=== PATIENT | female | born 1950 | race Caucasian/White ===

== ENCOUNTER → 2020-06-14 10:11 | Outpatient (CLI) | payer MEDICARE, SELFPAY ==
[2020-06-14 12:21] LABS: Alanine Aminotransferase 21 IU/L (<35); Albumin 4.2 g/dL (3.5-5.0); Albumin Globulin Ratio 1.8 (1.0-2.8); Alkaline Phosphatase 50 U/L (38-126); Aspartate Aminotransferase 28 IU/L (14-36); BUN Creatinine Ratio 18.3 (6-22); Bilirubin Total 0.3 mg/dL (0.2-1.3); Blood Urea Nitrogen 15 mg/dL (7-17); Calcium 9.3 mg/dL (8.4-10.2); Carbon Dioxide 29 mmol/L (22-32); Chloride 99 mmol/L (98-107); Cholesterol 244 mg/dL (140-199); Estimated Glomerular Filt Rate > 60.0 mL/min (>60); Globulin 2.4 g/dL (1.7-4.1); Glucose 111 mg/dL (80-110); HDL Cholesterol 95 mg/dL (40-60); HEMOLYSIS < 15 (0-50); LDL Cholesterol Calculated 136 mg/dL (<100); Potassium 4.3 mmol/L (3.4-5.1); Sodium 132 mmol/L (137-145); Total Protein 6.6 g/dL (6.3-8.2); Triglycerides 63 mg/dL (35-150)
[2020-06-14 12:44] LABS: TSH w/ Reflex to FT4 2.01 uIU/mL (0.47-4.68)
== END ==
PROVIDERS: Referring Provider Internal Medicine; Visit Provider Internal Medicine
DX: F41.9 Anxiety disorder, unspecified (principal); Z13.220 Encounter for screening for lipoid disorders
CPT/HCPCS: 36415; 80053; 80061; 84443

== ENCOUNTER 2020-06-20 07:00 | Inpatient (IN) | payer MEDICARE, SELFPAY ==
[2020-06-20] VITALS (36 sets, daily range): BP systolic 102–145; BP diastolic 56–73; PULSE 51–73; RESP 3–28; TEMP 36.1–36.7; O2SAT 94–100; BMI 17.2
--- NOTE | 2020-06-20 07:14 | ED_ITS ---
HPI - Overdose General Chief Complaint: Toxicology Problem Stated Complaint: Altered Mental status Time Seen by Provider: 06/20/20 07:00 Source: patient and EMS Mode of arrival: EMS Limitations: no limitations History of Present Illness HPI Narrative: 80-year-old female nonsmoker with history of mental health issues presents with EMS and a chief complaint of intentional overdose and suicide attempt. Last evening at about 11:30 p.m. she took a significant number of trazodone and lorazepam and attempt to kill herself. She wrote a note and her found her this morning and notified EMS. The patient is sleepy but guarding her airway without difficulty and denies any head, neck or back pain. She has no chest pain or shortness of breath. She has no nausea, vomiting or diarrhea. She had a prescription for 30 trazodone filled on June 14 and there are 9 remaining, raising the question of potentially 15 consumed. Her lorazepam was filled on June 05 and the bottle is empty. She is prescribed 30 pills, instructed to take 1 per night. She potentially took about 15 trazodone (50mg) and about 15 Lorazepam (1mg) MD complaint: intentional overdose Onset (ago): hour(s) Intent: suicide attempt How Overdose Was Discovered: left note Context: Intentional Overdose: relationship problems Treatments Prior to Arrival: none Related Data Previous Rx's Medication Instructions Recorded azithromycin 250 mg tablet See Rx Instructions PO .COMPLEX #6 10/11/17 tab promethazine 6.25 mg-codeine 10 5 ml PO Q6H PRN #118 ml 10/11/17 mg/5 mL syrup Allergies Allergy/AdvReac Type Severity Reaction Status Date / Time Penicillins Allergy Rash Verified 06/20/20 07:17 Review of Systems Constitutional Constitutional: Denies chills, Denies fatigue, Denies fever(s), Denies frequent falls, Denies lethargy and Denies weakness Eyes Eyes: Denies change in vision, Denies eye discharge, Denies irritation and Denies loss of vision ENT Ears, Nose, Mouth, and Throat: Denies change in voice, Denies dizziness, Denies neck pain, Denies sore throat and Denies throat swelling Cardiovascular Cardiovascular: Denies chest pain, Denies irregular heart rhythm, Denies lightheadedness, Denies palpitations, Denies dyspnea, Denies dyspnea on exertion and Denies orthopnea Respiratory Respiratory: Denies cough, Denies dyspnea, Denies dyspnea on exertion and Denies wheezing Gastrointestinal Gastrointestinal: Denies abdominal pain, Denies change in bowel habits, Denies diarrhea, Denies nausea and Denies vomiting Musculoskeletal Musculoskeletal: Denies neck pain and Denies numbness Integumentary/Breasts Skin/Breast: Denies pruritus, Denies erythema, Denies rash and Denies wounds Neurologic Neurologic: Denies behavioral changes, Denies confusion, Denies dizziness, Denies frequent falls, Denies loss of vision, Denies numbness and Denies w eakness Psychiatric Psychiatric: Denies anxiety, Denies behavioral changes, Denies confusion, Reports depression, Denies homicidal ideation and Reports suicidal ideation Endocrine Endocrine: Denies fatigue, Denies flushing and Denies palpitations Hematologic/Lymphatic Hematologic/Lymphatic: Denies easy bruising Allergic/Immunologic Allergic/Immunologic: Denies urticaria, Denies throat swelling and Denies wheezing Patient History Medical History (Updated 06/20/20 @ 17:50 by Yue Dillon MD) Depression Family History (Updated 06/20/20 @ 17:50 by Yue Dillon MD) Other Family history unobtainable Social History Smoking Status: Former smoker Smoking Status: Former smoker Exam Narrative Exam Narrative: GENERAL: [70] year old patient appears stated age. Well- nourished, well-developed patient, in mild distress. GCS 14. Guarding airway HEAD: Atraumatic. Normocephalic. EYES: Pupils equal round and reactive. Extraocular motions intact. No scleral icterus. No injection or drainage. ENT: Nose without bleeding, purulent drainage. Throat without erythema, tonsillar hypertrophy or exudate. Airway patent. NECK: Trachea midline. Non tender CARDIOVASCULAR: Regular rate and rhythm without murmurs, gallops, or rubs. RESPIRATORY: Clear to auscultation. Breath sounds equal bilaterally. No wheezes, rales, or rhonchi. GASTROINTESTINAL: Abdomen soft, non-tender, nondistended. EXTREMITIES: No edema or joint tenderness. BACK: Nontender without deformity or crepitance. No flank tenderness. NEURO: AOx3. SKIN: No rash or erythema of visible areas Initial Vital Signs Initial Vital Signs: Vital Signs Temperature 97.0 F L 06/20/20 07:12 Pulse Rate 70 06/20/20 07:12 Respiratory Rate 12 06/20/20 07:12 Blood Pressure 111/61 06/20/20 07:12 Pulse Oximetry 95 06/20/20 07:12 Course Course Course Narrative: patient continues to be somnalent and arousable, though difficult. She is guarding her airway without trouble. RESOURCING ADVISOR has tried multiple times to interview, however, she is unable to participate. Orders Ordered: ED Orders 06/20/20 15:45 CT head/brain wo con Stat Acetaminophen (Acetaminophen 325 Mg Tablet) 650 mg PO Q6HR PRN PRN Reason: Fever/Mild Pain (1-3) Hydrocodone Bitart/Acetaminophen (Hydrocodone/Acet 5/325 Tablet) 1 tab PO Q4HR PRN PRN Reason: Pain, Moderate (4-6) Sodium Chloride (Normal Saline 0.9%) 1,000 mls @ 150 mls/hr IV CONT TI Last Admin: 06/20/20 13:47 Dose: 150 mls/hr Documented by: Infusion: 06/20/20 13:47 Dose: 150 mls/hr Documented by: Admin: 06/20/20 07:23 Dose: 150 mls/hr Documented by: YANIRA Sodium Chloride (Normal Saline 0.9%) 1,000 mls @ 100 mls/hr IV CONT TI Naloxone HCl (Naloxone 0.4 Mg/Ml Vial) 0.2 mg IV Q2MIN PRN PRN Reason: Opiate Reversal Vital Signs Vital signs: Vital Signs - 8 hr 06/20/20 10:30 06/20/20 11:00 06/20/20 11:30 Pulse Rate 58 L 60 55 L Respiratory Rate 12 22 16 Blood Pressure 110/56 L Pulse Oximetry 97 99 97 06/20/20 12:00 06/20/20 12:30 06/20/20 13:00 Pulse Rate 53 L 54 L 51 L Respiratory Rate 16 13 13 Blood Pressure Pulse Oximetry 98 99 99 06/20/20 13:30 06/20/20 13:50 06/20/20 13:51 Pulse Rate 54 L 57 L 56 L Respiratory Rate 12 16 22 Blood Pressure 110/61 110/61 Pulse Oximetry 98 99 97 06/20/20 14:00 06/20/20 14:30 06/20/20 15:00 Pulse Rate 56 L 57 L 61 Respiratory Rate 22 19 20 Blood Pressure Pulse Oximetry 98 100 99 06/20/20 15:30 06/20/20 16:00 06/20/20 16:12 Pulse Rate 57 L 63 67 Respiratory Rate 14 18 16 Blood Pressure 102/60 Pulse Oximetry 97 98 99 06/20/20 16:30 Pulse Rate 64 Respiratory Rate 14 Blood Pressure 123/60 Pulse Oximetry 97 MDM - Overdose Lab Data Result diagrams: 06/20/20 07:17 06/20/20 07:17 Labs: Lab Results 06/20/20 06/20/20 06/20/20 Range/Units 07:17 07:17 07:35 WBC 5.0 (4.5-11.0) X10^3/uL RBC 3.91 L (4.0-5.2) X10^6/uL Hgb 12.1 (12.0-16.0) g/dL Hct 36.0 (36-46) % MCV 91.9 (80-100) fL MCH 31.0 (26-34) PG MCHC 33.7 (30-36) % RDW 13.9 (11.6-14.8) % Plt Count 239 (150-400) X10^3/uL Neut % (Auto) 77.4 H (50-75) % Lymph % (Auto) 12.0 L (25-40) % [place] % (Auto) 9.2 (3-14) % Eos % (Auto) 1.0 L (2-4) % Baso % (Auto) 0.4 (0-2) % Neut # (Auto) 3800 (4579-0099) /uL Lymph # (Auto) 600 L (3343-4997) /uL [place] # (Auto) 500 (0-900) /uL Eos # (Auto) 100 (0-450) /uL Baso # (Auto) 0 (0-100) /uL Sodium 128 L (137-145) mmol/L Potassium 3.9 (3.4-5.1) mmol/L Chloride 98 (98-107) mmol/L Carbon Dioxide 28 (22-32) mmol/L BUN 17 (7-17) mg/dL Creatinine 0.67 (0.52-1.04) mg/dL Estimated GFR > 60.0 (>60) mL/min BUN/Creatinine Ratio 25.4 H (6-22) Glucose 96 (80-110) mg/dL Lactate 0.6 L (0.7-2.1) mmol/L Calcium 8.7 (8.4-10.2) mg/dL Total Bilirubin 0.3 (0.2-1.3) mg/dL Conjugated Bilirubin 0.0 (0.0-0.3) md/dL Unconjugated Bilirubin 0.4 (0.0-1.1) mg/dL AST 26 (14-36) IU/L ALT 20 (<35) IU/L Alkaline Phosphatase 43 (38-126) U/L Total Protein 5.6 L (6.3-8.2) g/dL Albumin 3.5 (3.5-5.0) g/dL Globulin 2.1 (1.7-4.1) g/dL Albumin/Globulin Ratio 1.7 (1.0-2.8) Salicylates < 1.0 (<20) mg/dL Acetaminophen < 10 L (10-30) ug/mL Ethyl Alcohol < 10 ( - 10) mg/dL SARS-CoV-2 (PCR) (Negative) 06/20/20 Range/Units 07:56 WBC (4.5-11.0) X10^3/uL RBC (4.0-5.2) X10^6/uL Hgb (12.0-16.0) g/dL Hct (36-46) % MCV (80-100) fL MCH (26-34) PG MCHC (30-36) % RDW (11.6-14.8) % Plt Count (150-400) X10^3/uL Neut % (Auto) (50-75) % Lymph % (Auto) (25-40) % [place] % (Auto) (3-14) % Eos % (Auto) (2-4) % Baso % (Auto) (0-2) % Neut # (Auto) (4107-5018) /uL Lymph # (Auto) (1114-7852) /uL [place] # (Auto) (0-900) /uL Eos # (Auto) (0-450) /uL Baso # (Auto) (0-100) /uL Sodium (137-145) mmol/L Potassium (3.4-5.1) mmol/L Chloride (98-107) mmol/L Carbon Dioxide (22-32) mmol/L BUN (7-17) mg/dL Creatinine (0.52-1.04) mg/dL Estimated GFR (>60) mL/min BUN/Creatinine Ratio (6-22) Glucose (80-110) mg/dL Lactate (0.7-2.1) mmol/L Calcium (8.4-10.2) mg/dL Total Bilirubin (0.2-1.3) mg/dL Conjugated Bilirubin (0.0-0.3) md/dL Unconjugated Bilirubin (0.0-1.1) mg/dL AST (14-36) IU/L ALT (<35) IU/L Alkaline Phosphatase (38-126) U/L Total Protein (6.3-8.2) g/dL Albumin (3.5-5.0) g/dL Globulin (1.7-4.1) g/dL Albumin/Globulin Ratio (1.0-2.8) Salicylates (<20) mg/dL Acetaminophen (10-30) ug/mL Ethyl Alcohol ( - 10) mg/dL SARS-CoV-2 (PCR) Negative (Negative) Imaging Data CT scan - head: Radiologist's Impression: Zaida Jones 70 F [address] Scan ReportSigned Patient: Zaida Jones#: [id number]: 8Acct:[id number]/Sex: 70 / FDate of Service: 06/20/20Loc: EDAccession Number: [id number] Procedure: CT head/brain wo con Ordering Provider: Antonio Bunch D.O. PROCEDURE: CT HEAD/BRAIN WO CON INDICATIONS: altered, suicidal TECHNIQUE: Noncontrast 4.5 mm thick angled axial sections acquired from the foramen magnum to the vertex, with coronal and sagittal reformats. For radiation dose reduction, the following was used: automated exposure control, adjustment of mA and/or kV according to patient size. COMPARISON: None. FINDINGS: Image quality: Excellent. CSF spaces: Basal cisterns are patent. No extra-axial fluid collections. The ventricles are symmetric in size and shape. Brain: No intracranial bleeds or masses. There is cerebral volume loss for age, with resultant ventricular and sulcal prominence. There are periventricular and deep white matter chronic small vessel ischemic changes. There is intracranial internal carotid artery atherosclerosis. Skull and face: Calvarium and visualized facial bones appear intact, without s uspicious lesions. Sinuses: Visualized sinuses and mastoids are clear. IMPRESSION: 1. CT head without acute intracranial abnormalities or acute calvarial fractures. 2. Age-related senescent changes and sequela of chronic small vessel ischemic disease. 3. No mass or mass effect. Dictated by: Xander Townsend M.D. on 06/20/2020 at 16:41 Approved by: Xander Townsend M.D. on 06/20/2020 at 16:43 Discharge Plan Departure Patient Disposition: Admitted As Inpatient Clinical Impression: Suicide attempt, Polysubstance abuse, Intentional overdose of drug in tablet form, Acute hyponatremia Admit Date/Time: 06/20/20 16:55 Admit Provider: Yue Dillon
[2020-06-20] MEDS: SODIUM CHLORIDE 0.9% 1,000 ML 150 ML IV ×2 (07:23→13:47)
[2020-06-20 07:26] LABS: Add Manual Diff / Slide Review NO; Basophils Absolute Auto 0 /uL (0-100); Basophils Percent Auto 0.4 % (0-2); Eosinophils Absolute Auto 100 /uL (0-450); Hemoglobin 12.1 g/dL (12.0-16.0); Lymphocytes Absolute Auto 600 /uL (1100-4500); Mean Corpuscular HGB Conc 33.7 % (30-36); Mean Corpuscular Volume 91.9 fL (80-100); Monocytes Absolute Auto 500 /uL (0-900); Monocytes Percent Auto 9.2 % (3-14); Neutrophils Absolute Auto 3800 /uL (1500-7000); Neutrophils Percent Auto 77.4 % (50-75); Platelet Count 239 X10^3/uL (150-400); Red Blood Cell Count 3.91 X10^6/uL (4.0-5.2); Red Cell Distribution Width 13.9 % (11.6-14.8)
[2020-06-20 07:29] LABS: Acetaminophen < 10 ug/mL (10-30); Alanine Aminotransferase 20 IU/L (<35); Albumin 3.5 g/dL (3.5-5.0); Albumin Globulin Ratio 1.7 (1.0-2.8); Alkaline Phosphatase 43 U/L (38-126); Aspartate Aminotransferase 26 IU/L (14-36); BUN Creatinine Ratio 25.4 (6-22); Bilirubin Total 0.3 mg/dL (0.2-1.3); Bilirubin Unconjugated 0.4 mg/dL (0.0-1.1); Blood Urea Nitrogen 17 mg/dL (7-17); Calcium 8.7 mg/dL (8.4-10.2); Carbon Dioxide 28 mmol/L (22-32); Chloride 98 mmol/L (98-107); Estimated Glomerular Filt Rate > 60.0 mL/min (>60); Ethanol (ETOH) < 10 mg/dL; Globulin 2.1 g/dL (1.7-4.1); Glucose 96 mg/dL (80-110); HEMOLYSIS < 15 (0-50); Potassium 3.9 mmol/L (3.4-5.1); Salicylate < 1.0 mg/dL (<20); Sodium 128 mmol/L (137-145); Total Protein 5.6 g/dL (6.3-8.2)
--- NOTE | 2020-06-20 07:31 | PC.NURSE ---
Patient brought in by EMS after her spouse found a letter. Patient overdosed on Trazodone and Ativan. Patient reports she took them around 2330 last night. Patient arrives lethargic but arrousable. Drifts back to sleep in conversation. Patient states her provider recently started prescribing it for sleep and anxiety. I just wanted my to know I couldn't do this anymore
[2020-06-20 07:56] LABS: Lactate (Lactic Acid) 0.6 mmol/L (0.7-2.1)
[2020-06-20 08:22] LABS: COVID19 -Nasal RAPID Negative (Negative)
--- NOTE | 2020-06-20 08:40 | PC.NURSE ---
Patient took approx 15 tabs of Trazodone 30mg each and 16 tabs of Ativan 1mg each at 2330 last night. Left a note for
--- NOTE | 2020-06-20 08:57 | PC.NURSE ---
Poison Control notified of Overdose. Suggested if any abnormalities on EKG with OTC to add on magnesium level. Monitor and wait for patient to be more alert for SECURITIES ATTORNEY evaluation
--- NOTE | 2020-06-20 09:38 | PC.NURSE ---
sleeping. Resp unlabored
--- NOTE | 2020-06-20 09:39 | PC.NURSE ---
sleeping. Repositioned independently
--- NOTE | 2020-06-20 09:43 | PC.NURSE ---
sleeping. IVF continue to infuse. Patient repositioning independent. Resp even and unlabored
--- NOTE | 2020-06-20 10:27 | PC.NURSE ---
Breakfast ordered per patient
--- NOTE | 2020-06-20 14:29 | PC.NURSE ---
Pt done eating lunch. [employer] GLOVE [employer]MER in room talking with pt now.
--- NOTE | 2020-06-20 15:45 | DI.CT.S_ITS ---
PROCEDURE: CT HEAD/BRAIN WO CON INDICATIONS: altered, suicidal TECHNIQUE: Noncontrast 4.5 mm thick angled axial sections acquired from the foramen magnum to the vertex, with coronal and sagittal reformats. For radiation dose reduction, the following was used: automated exposure control, adjustment of mA and/or kV according to patient size. COMPARISON: None. FINDINGS: Image quality: Excellent. CSF spaces: Basal cisterns are patent. No extra-axial fluid collections. The ventricles are symmetric in size and shape. Brain: No intracranial bleeds or masses. There is cerebral volume loss for age, with resultant ventricular and sulcal prominence. There are periventricular and deep white matter chronic small vessel ischemic changes. There is intracranial internal carotid artery atherosclerosis. Skull and face: Calvarium and visualized facial bones appear intact, without suspicious lesions. Sinuses: Visualized sinuses and mastoids are clear. IMPRESSION: 1. CT head without acute intracranial abnormalities or acute calvarial fractures. 2. Age-related senescent changes and sequela of chronic small vessel ischemic disease. 3. No mass or mass effect. Dictated by: Xander Townsend M.D. on 06/20/2020 at 16:41 Approved by: Xander Townsend M.D. on 06/20/2020 at 16:43
--- NOTE | 2020-06-20 16:09 | CM.SWNOTE ---
ORDER ENTRY ADMINISTRATOR note ORDER ENTRY ADMINISTRATOR consult requested for patient. Patient is a 70 y/o female who presents to this ED following an attempted overdose on Lorazepam and Trazadone. Patient did write suicide note and a copy of this note has been provided to this ED by patient?s . Patient was brought to ED via EMS after patient?s called 911. ORDER ENTRY ADMINISTRATOR is informed by RN that patient is awake and ORDER ENTRY ADMINISTRATOR enters room. ORDER ENTRY ADMINISTRATOR attempts assessment with patient. Patient does attempt to engage in assessment, however, is still very somnolent. Patient?s speech is soft, and both movement and speech are slow. Patient is able to explain that she started experiencing ?phobia? of dentists in April, and had been experiencing anxiety since then. Patient is unable to remain focused on conversation at hand, begins to fall asleep, and ORDER ENTRY ADMINISTRATOR offers to delay assessment. Patient agrees. ORDER ENTRY ADMINISTRATOR exits room and updates ERLINDA Oliver. Pl: Per Dr. Bunch, plan will be to admit patient to hospital at this time. HU Delgado
--- NOTE | 2020-06-20 17:31 | PC.NURSE ---
Addendum entered by Yue Stein R.N. 06/20/20 17:44: Pt incontinent and pad underneath removed. Pt reports needing to urinate again and placed on bedpan. Original Note: Pt notified dinner is available. Pt states yes when asked if she is hungry. MD Dillon now in room.
--- NOTE | 2020-06-20 17:44 | P.HP_ITS ---
History of Present Illness History of Present Illness Date Patient Seen: 06/20/20 Chief complaint: Altered Mental status Narrative: The patient is a 70-year-old female with a history of depression. Patient took an overdose last evening. Around 03 11 she took 50 mg tablets of trazodone. Patient left a note. She was found by her somnolent and minimally responsive. Patient was brought into the emergency department for evaluation. She was found to have a sodium of 128. Head CT was obtained. Poison control was contacted and recommended observation and monitoring her QT interval. The patient has been in the emergency department for 10 hours. She continues to be very somnolent and unarousable. The patient initially was able to answer questions. She stated she was at [facility] because she took an overdose last evening. She quickly fell back to sleep. She gets a she had a mild headache, no shortness of breath, and no dysuria. Otherwise the patient was sleepy again and minimally arousable. She is admitted to the hospital for detoxification following an overdose of multiple substances. Patient History Medical History (Updated 06/20/20 @ 17:50 by Yue Dillon MD) Depression Family & Social History Family History (Updated 06/20/20 @ 17:50 by Yue Dillon MD) Other Family history unobtainable Safety & Behavioral: Feels Safe in Current Yes Environment Been Physically Hurt or No Threatened By a Person Tobacco & Substance use: Smoking Status Former smoker Meds Home Medications and Allergies Home Medications Medication Instructions Recorded Confirmed Type azithromycin 250 mg tablet See Rx Instructions PO .COMPLEX #6 10/11/17 Rx tab promethazine 6.25 mg-codeine 10 5 ml PO Q6H PRN #118 ml 10/11/17 Rx mg/5 mL syrup Allergies Allergy/AdvReac Type Severity Reaction Status Date / Time Penicillins Allergy Rash Verified 06/20/20 07:17 Review of Systems Review of Systems ROS: Yes unobtainable due to mental status Exam Vital Signs (past 8 hours): - 06/20/20 10:00 06/20/20 10:30 06/20/20 11:00 Pulse Rate 52 L 58 L 60 Respiratory Rate 13 12 22 Blood Pressure Pulse Oximetry 98 97 99 06/20/20 11:30 06/20/20 12:00 06/20/20 12:30 Pulse Rate 55 L 53 L 54 L Respiratory Rate 16 16 13 Blood Pressure 110/56 L Pulse Oximetry 97 98 99 06/20/20 13:00 06/20/20 13:30 06/20/20 13:50 Pulse Rate 51 L 54 L 57 L Respiratory Rate 13 12 16 Blood Pressure 110/61 Pulse Oximetry 99 98 99 06/20/20 13:51 06/20/20 14:00 06/20/20 14:30 Pulse Rate 56 L 56 L 57 L Respiratory Rate 22 22 19 Blood Pressure 110/61 Pulse Oximetry 97 98 100 06/20/20 15:00 06/20/20 15:30 06/20/20 16:00 Pulse Rate 61 57 L 63 Respiratory Rate 20 14 18 Blood Pressure Pulse Oximetry 99 97 98 06/20/20 16:12 06/20/20 16:30 06/20/20 17:00 Pulse Rate 67 64 61 Respiratory Rate 16 14 14 Blood Pressure 102/60 123/60 108/58 L Pulse Oximetry 99 97 96 Oxygen Delivery Method Room Air Narrative Exam Narrative: Lethargic female lying in bed, minimally arousable, she intermittently will arouse answer questions in the quickly fall back to sleep HEENT: Normocephalic atraumatic, oropharynx reveals dry mucous membranes, neck is supple without adenopathy Lungs: Clear to auscultation Cardiac exam: Regular rate rhythm normal S1-S2 with a 2/6 systolic ejection murmur Abdomen: Soft and nontender Extremities: No edema Neuro exam: The patient is lethargic, she does move all extremities she is minimally responsive, occasions she will awake and answer questions but quickly fall back to sleep. She is unable to participate with full neuro exam Objective Labs Result Diagrams: 06/20/20 07:17 06/20/20 07:17 Labs: Laboratory Results - last 24 hr 06/20/20 06/20/20 06/20/20 07:17 07:17 07:35 WBC 5.0 RBC 3.91 L Hgb 12.1 Hct 36.0 MCV 91.9 MCH 31.0 MCHC 33.7 RDW 13.9 Plt Count 239 Neut % (Auto) 77.4 H Lymph % (Auto) 12.0 L [place] % (Auto) 9.2 Eos % (Auto) 1.0 L Baso % (Auto) 0.4 Neut # (Auto) 3800 Lymph # (Auto) 600 L [place] # (Auto) 500 Eos # (Auto) 100 Baso # (Auto) 0 Sodium 128 L Potassium 3.9 Chloride 98 Carbon Dioxide 28 BUN 17 Creatinine 0.67 Estimated GFR > 60.0 BUN/Creatinine Ratio 25.4 H Glucose 96 Lactate 0.6 L Calcium 8.7 Total Bilirubin 0.3 Conjugated Bilirubin 0.0 Unconjugated Bilirubin 0.4 AST 26 ALT 20 Alkaline Phosphatase 43 Total Protein 5.6 L Albumin 3.5 Globulin 2.1 Albumin/Globulin Ratio 1.7 Salicylates < 1.0 Acetaminophen < 10 L Ethyl Alcohol < 10 SARS-CoV-2 (PCR) 06/20/20 07:56 WBC RBC Hgb Hct MCV MCH MCHC RDW Plt Count Neut % (Auto) Lymph % (Auto) [place] % (Auto) Eos % (Auto) Baso % (Auto) Neut # (Auto) Lymph # (Auto) [place] # (Auto) Eos # (Auto) Baso # (Auto) Sodium Potassium Chloride Carbon Dioxide BUN Creatinine Estimated GFR BUN/Creatinine Ratio Glucose Lactate Calcium Total Bilirubin Conjugated Bilirubin Unconjugated Bilirubin AST ALT Alkaline Phosphatase Total Protein Albumin Globulin Albumin/Globulin Ratio Salicylates Acetaminophen Ethyl Alcohol SARS-CoV-2 (PCR) Negative Assessment & Plan Assessment & Plan narrative: 70-year-old female admitted to the hospital following an polysubstance overdose, for suicide attempt -patient remains markedly lethargic although arousable intermittently -per poison Control 1 substances wear off the patient should be more arousable -both trazodone and Ativan have been held -QT interval corrects are normal -patient will be admitted to telemetry -will continue to monitor her closely Hyponatremia -etiology unclear -will continue IV hydration Depression/suicide ideation -once the patient is cleared medically she will require psychiatric evaluation to determine whether inpatient or outpatient psych evaluation is indicated Patient is a full code will note that her record accordingly Her is her surrogate decision maker
[2020-06-20 18:19] LABS: Appearance Urine UA CLEAR; Bilirubin Urine UA NEGATIVE (NEGATIVE); Color Urine UA YELLOW; Glucose Urine UA NEGATIVE (Negative); Ketones Urine UA NEGATIVE (NEGATIVE); Leukocyte Esterase Urine UA NEGATIVE (NEGATIVE); Nitrite Urine UA NEGATIVE (Negative); Occult Blood Urine UA NEGATIVE (Negative); Protein Urine UA NEGATIVE (Negative); Urobilinogen Urine UA 0.2 E.U./dL (0.2)
[2020-06-20 18:23] LABS: UR Morphine/Opiate cutoff 300 Negative (Negative); Ur Creatinine Normal (Normal); Ur Specific Gravity Normal (Normal); Urine Amphetamines Negative (Negative); Urine Barbiturates Negative (Negative); Urine Benzodiazepines Negative (Negative); Urine Cocaine Negative (Negative); Urine MDMA Negative (Negative); Urine Methadone Negative (Negative); Urine Methamphetamines Negative (Negative); Urine Oxycodone Negative (Negative); Urine Phencyclidine Negative (Negative); Urine Tetrahydrocannabinol Negative (Negative); Urine Tricyclic Antidepressant Negative (Negative); Urine pH Normal (Normal)
--- NOTE | 2020-06-20 19:44 | PC.NURSE ---
admit pt to ac from ED at 1855. VSS. pt is drowsy but opens eyes and is oriented to all questions. able to feed self dinner. This RN asked pt what happened last night that caused her to take so many pills. pt first responds by telling this RN that she used to go to the dentist regularly and than over the years became for fearful of the dentist. Then she states they lost their dental insurance so she stopped going but then went again in 2006 and had a bad experience and didn't go back. This RN asked if pt's having mouth or teeth pain. pt denies. This RN asked pt again what made her take so many pills. This RN asked pt if she was aware that taking that amount of her prescriptions might be detrimental to her breathing and could cause her to . Pt states I didn't really think about it. When asked again what her reason was to take so many pt states that she felt like she's a burden to her and kids and that maybe it was better if she wasn't here. This RN asked why she feels that she is a burden and pt replied that her has a hard time sleeping and maybe it would be easier for him if she wasn't here. Pt than follows that by saying that her and kids love her and have told her she's not a burden. Pt is placed in view room with 1:1 supervision. tele/O2 monitor on. Bed alarm on.
[2020-06-20] MEDS: SODIUM CHLORIDE 0.9% 1,000 ML 100 ML IV (21:01)
[2020-06-21] VITALS (32 sets, daily range): BP systolic 102–120; BP diastolic 55–68; PULSE 53–79; RESP 12–36; TEMP 36.1–37; O2SAT 93–100
[2020-06-21 05:09] LABS: BUN Creatinine Ratio 25.4 (6-22); Blood Urea Nitrogen 16 mg/dL (7-17); Calcium 8.2 mg/dL (8.4-10.2); Carbon Dioxide 27 mmol/L (22-32); Chloride 104 mmol/L (98-107); Estimated Glomerular Filt Rate > 60.0 mL/min (>60); Glucose 113 mg/dL (80-110); HEMOLYSIS 22 (0-50); Sodium 131 mmol/L (137-145)
[2020-06-21 06:33] LABS: Magnesium 1.9 mg/dL (1.6-2.3)
[2020-06-21] MEDS: SODIUM CHLORIDE 0.9% 1,000 ML 100 ML IV (07:00)
--- NOTE | 2020-06-21 07:45 | PC.NURSE ---
Addendum entered by Christiano Vora R.N. 06/21/20 11:07: Pt has remained up to chair this AM. Supportive at bedside. Addendum entered by Christiano Vora R.N. 06/21/20 09:43: Pt up to chair for breakfast. Tolerating general diet and PO fluids. She is calm/cooperative and denies any specific SI/plan at this time. VSS. IVFs dc'd per order. Pt requested I call her to give him a general update and ask him to bring her glasses up for her. Educated to visitor policy. He verbalizes understanding. Original Note: Rec'd pt in bed resting comfortably with eyes closed. Respirations 12 even/unlabored. SPO2 96% on RA. SR/SB on tele with rates 58-65. QTc WNL. Allowing rest and will wake for breakfast. Suicide precautions and 1:1 observation per protocol.
--- NOTE | 2020-06-21 08:24 | PM.PN.1 ---
Subjective Subjective Date Patient Seen: 06/21/20 Interval history: Patient is 70-year-old female with history of depression and anxiety admitted after intentional overdose of lorazepam and trazodone. Patient is awake and talking this morning. She recalls recent events and signifies intention to kill herself with medication overdose. She has not had any changes on telemetry. Patient indicates she was started on low dose of sertraline on May 22 of this year. Subsequently her medication dose was increased twice to current 100 mg daily. Subsequently bupropion 150 mg XR daily was added. She has also been taking trazodone for sleep and lorazepam for sleep/anxiety. Patient endorses depression, hopelessness and insomnia and felt the medications were not working for her. She had appointment with tele health therapist coming up day after her overdose and has not seen a therapist in the past. She has no previous suicidal attempt. Patient states the overdose attempt was kind of a last minute decision and not something she had been contemplating for a while. She states she has good relationship with and also good relationship with her 3 kids. Exam Vital Signs (past 8 hours): - 06/21/20 01:00 06/21/20 05:06 06/21/20 08:00 Temperature 98.6 F 98.1 F Pulse Rate 60 70 63 Respiratory Rate 14 19 16 Blood Pressure 111/55 L 105/59 L 115/61 Pulse Oximetry 96 97 97 Oxygen Delivery Method Room Air Oxygen Flow Rate 0 Narrative Exam Narrative: General: Alert female in no acute distress Lungs: Breathing nonlabored, clear to auscultation Heart: Regular rhythm Extremities: No edema Psychiatric: Affect flat, not tearful, not anxious, no obvious memory deficits, speech is goal-directed without pressured thinking or flight of ideas Objective Labs Result Diagrams: 06/20/20 07:17 06/21/20 04:30 Labs: Laboratory Results - last 24 hr 06/20/20 06/20/20 06/21/20 18:11 18:11 04:30 Sodium 131 L Potassium 4.0 Chloride 104 Carbon Dioxide 27 BUN 16 Creatinine 0.63 Estimated GFR > 60.0 BUN/Creatinine Ratio 25.4 H Glucose 113 H Calcium 8.2 L Magnesium Urine Color Yellow Urine Appearance Clear Urine pH 6.0 Ur Specific [place] 1.020 Urine Protein Negative Urine Glucose (UA) Negative Urine Ketones Negative Urine Occult Blood Negative Urine Nitrate Negative Urine Bilirubin Negative Urine Urobilinogen 0.2 Ur Leukocyte Esterase Negative U Opiates 300ng/mL cut Negative Ur Oxycodone Screen Negative Urine Methadone Screen Negative Ur Barbiturates Screen Negative U Tricyclic Antidepress Negative Ur Phencyclidine Scrn Negative Ur Amphetamines Screen Negative U Methamphetamines Scrn Negative Ur MDMA Scrn (Ecstasy) Negative U Benzodiazepines Scrn Negative Urine Cocaine Screen Negative U Marijuana (THC) Screen Negative 06/21/20 04:30 Sodium Potassium Chloride Carbon Dioxide BUN Creatinine Estimated GFR BUN/Creatinine Ratio Glucose Calcium Magnesium 1.9 Urine Color Urine Appearance Urine pH Ur Specific [place] Urine Protein Urine Glucose (UA) Urine Ketones Urine Occult Blood Urine Nitrate Urine Bilirubin Urine Urobilinogen Ur Leukocyte Esterase U Opiates 300ng/mL cut Ur Oxycodone Screen Urine Methadone Screen Ur Barbiturates Screen U Tricyclic Antidepress Ur Phencyclidine Scrn Ur Amphetamines Screen U Methamphetamines Scrn Ur MDMA Scrn (Ecstasy) U Benzodiazepines Scrn Urine Cocaine Screen U Marijuana (THC) Screen PFSH Medical History (Updated 06/20/20 @ 17:50 by Yue Dillon MD) Depression Family History (Updated 06/20/20 @ 17:50 by Yue Dillon MD) Other Family history unobtainable Social History household members: spouse Smoking Status: Former smoker alcohol intake: never Assessment & Plan Assessment & Plan narrative: 1. 70-year-old female with history of depression admitted to the hospital following an polysubstance overdose, for suicide attempt -patient has woken, is cooperative, and is medically stable -mental health evaluation today to determine outpatient or inpatient psychiatric evaluation 2. Acute hyponatremia, resolved -Hep-Lock IV Quality VTE Deep Vein Thrombosis/Pulmonary Embolism Present on Admission: No
[2020-06-21 14:22] LABS: Osmolality, Serum 273 mOsmol/kg (280-301)
--- NOTE | 2020-06-21 18:15 | PC.NURSE ---
Patient is going to sleep for awhile.
[2020-06-22] VITALS (9 sets, daily range): BP systolic 116–132; BP diastolic 56–79; PULSE 64–87; RESP 16–20; TEMP 36.4–37.2; O2SAT 94–96
[2020-06-22] MEDS: SODIUM CHLORIDE 0.9% FLUSH 10 ML IV ×3 (08:44→22:25)
--- NOTE | 2020-06-22 08:47 | CM.SWNOTE ---
[employer] Assessment and Note [employer] - Executive Chairman Of The Board Assessment Start: 06/22/20 08:30 Freq: Status: Active Protocol: Document 06/22/20 08:31 JOE (Rec: 06/22/20 08:46 JOE [id number]) [employer]/Executive Chairman Of The Board Assessment Start date 06/21/20 Total time Care Management spent on 30-60 minutes patient visit-in minutes Presenting Problem According to ED HPI Narrative 3..21: 80-year-old female nonsmoker with history of mental health issues presents with EMS and a chief complaint of intentional overdose and suicide attempt. Last evening at about 11:30 p.m. she took a significant number of trazodone and lorazepam and attempt to kill herself. She wrote a note and her found her this morning and notified EMS. Precipitating Event(s) Tooth pain 2 months ago, lifelong Phobia of dentistry (dentophobia)... w/recent need of dental work exacerbated underlying depression, anxiety and agoraphobia Patient Strengths Supportive spouse and three supportive adult children, supportive friends, independent and active at baseline Current Behavioral Health Provider(s) PCP Dr Simran Reyes, psychiatry Include Facility, Provider, Ph. # telemedicine appt was scheduled however patient did not connect before arriving to ED Psych. Hx Mental Health and Chemical No prior SA, no h/o counseling Dependency or psychiatric care Family Hx of Behavioral Abuse None reported Psychiatric Hospitalizations (date(s)/ None reported location) Psychosocial information & Support Lives w/spouse in [facility] three adult children, one lives in [place], other in [place] and another out of [place], [place]. Supportive friends School/Work Retired Legal Matters - Outstanding Issues None reported Orientation (Person/Place/Time) A+O Affect (Congruent with Mood?) Blunted affect, does not appear or sound remorseful, appears and sounds apathetic about the outcome of her future Thought Content - Specify/Describe Obsession about avoiding dentist, Dentophobia, admits to constant racing thoughts Speech (Wfqnbn-Hlaz-Gmdnpdj-Rapid-Soft- Normal Loud-Pressured) Motor (Qemmnl-Bjypbfqro-Qeet-Other) Normal Insight (Yfeu-Rkwp-Tpch/Limited) Poor/Limited Judgement (Uwyo-Wfhf-Ndni/Limited) Poor/Limited Impulse Control (Adequate-Impaired) Impaired Memory (Iticwmfys-Wxuqcm-Wkusnt, Intact Impaired-Intact) Concentration (Intact-Impaired) Intact Attention (Intact-Impaired) Intact Behavior (Appropriate-Inappropriate) Appropriate, calm and cooperative Suicidal Ideation (Plan) Yes Homicidal Ideation (Plan) No Intervention and Plan: Patient brought in my EMS after intentional overdose on prescription trazodone and ativan, wrote a good bye note to her spouse before ingesting approx. 5 trazodone (50mg) and about 15 Lorazepam (1mg) Patient requests spouse stay for this [employer]'s visit. Patient has blunted and flat affect, she often requests her to assist w/details and does not exhibit any remorse throughout our visit except to apologize to spouse when he began to tear up. Patient reports a life long struggle w/anxiety and racing thoughts that she has managed by staying active. Patient reports dentophobia throughout her entire adult life, she has gone to the dentist sporadically, but not without extreme anxiety and panic which she reports I just live through Patient dates current exacerbation back approx. two months ago when she bit into a small chix bone, experienced shooting tooth pain, and knew she would need to have dentist work to relieve pain. This fear of returning to the dentist exacerbated chronic underlying depression, anxiety leading to what patient describes as a constant state of panic, nothing helped. Patient became increasingly fearful of anything that was unplanned and unstructured, she feared going to any doctor appt and then became fearful of going out on errands, grocery store etc. Approx. 2 weeks ago, patient was unable to sleep or eat for 4 days and 4 nights d/t racing thoughts and ended up in her PCP's office requesting something to aid in sleep. She was prescribed ativan and trazodone, which she reports helped her sleep but did not take away constant feelings of panic. Patient admits she couldn't live with it, just gave up I guess. Patient laughs inappropriately throughout our conversation, and appears to have a difficult time identifying and labeling feelings of severe and debilitating anxiety, isolation and impulsiveness. Patient denies former thoughts of suicide or attempts, states she did not plan her attempt before the day she took the pills, states I just gave up. This [employer] suggested attempt at inpatient psychiatric care in a geriatric unit and patient and spouse agreed. Patient agrees w/this [employer] that she needs help. Whitley Rolon, [employer]
--- NOTE | 2020-06-22 10:00 | PT.IIE ---
Current Diagnoses Poisoning by selective serotonin and norepinephrine reuptake inhibitors, intentional self-harm, initial encounter (06/20/20) Medical History (Last Updated 06/20/20 @ 17:50 by Yue Dillon MD) Depression Physical Therapy Inpatient Evaluation/Re-Eval M1 PT/OT-IP Prior Functional Status Start: 06/22/20 12:02 Freq: NEEDED Status: Active Protocol: Document 06/22/20 12:02 [facility] (Rec: 06/22/20 12:30 [facility] [id number]) Medical Review Prior Functional Status Medical History Reviewed Yes Communication Independent. Mobility and Gait Pt states did not use any devices for walking. Activities of Daily Living and IADL's Pt states completely independent for all ADl, IADL, and driving needs. Social History Household Members spouse Living Arrangements House Number of Floors (Floors) One Floor Number of Stairs To Enter/Railing? 1 step from either the front or the garage to get into the house. Home Environment Standard Height Toilet,Tub/ Shower Additional Social History Comment Pt has two adult children that live in [place]. M1 PT/OT-IP Prior Functional Status Start: 06/22/20 15:00 Freq: NEEDED Status: Active Protocol: Document 06/22/20 10:00 AB (Rec: 06/22/20 15:22 AB [id number]) Medical Review Prior Functional Status Medical History Reviewed Yes Communication able to make needs known Mobility and Gait pt stated that she is independent with all mobilities and ambulation without AD but stated that she uses her walking sticks when she goes for a walk outdoors Activities of Daily Living and IADL's per OT notes: Pt states completely independent for all ADl, IADL, and driving needs. Social History Household Members spouse Living Arrangements House Number of Floors (Floors) One Floor Number of Stairs To Enter/Railing? 1 steps to enter without rails Home Environment Standard Height Toilet,Tub/ Shower Additional Social History Comment has walking sticks M2 PT-IP Current Condition Start: 06/22/20 15:00 Freq: NEEDED Status: Active Protocol: Document 06/22/20 10:00 AB (Rec: 06/22/20 15:22 AB [id number]) Physical Therapy Current Condition Current Condition Evaluation Date 06/22/20 Treatment Diagnosis intentional overdose; difficulty in walking Onset Date 06/20/20 Precautions Other Precautions falls; suicidal ideation M3 PT-IP Subjective Start: 06/22/20 15:00 Freq: NEEDED Status: Active Protocol: Document 06/22/20 10:00 AB (Rec: 06/22/20 15:22 AB [id number]) Subjective Physical Therapy Visit Type Type Initial Evaluation Visit Start Time 10:00 Visit Stop Time 10:30 Total Visit Minutes 30 Number of MOLDING PROCESS TECHNICIAN Visits 0 Physical Therapy Visit Comments Patient Comments pt is agreeable to do PT Therapy Pain Assessment Pain Present Pain Present Denied Pain M4 PT-IP Mobility and Gait Start: 06/22/20 15:00 Freq: NEEDED Status: Active Protocol: Document 06/22/20 10:00 AB (Rec: 06/22/20 15:22 AB [id number]) PT-Bed Mobility Assessment Supine to Sit Supine to Sit Standby Assistance Sit to Supine Sit to Supine Standby Assistance PT-Transfer Assessment Sit to and From Stand Sit to and from Stand Standby Assistance,Contact Guard Assistance,1 Person Assistance,Use of Upper Extremities Equipment Transfer Assistive Device None,Gait Belt Orthotic/Prosthetic Devices or Brace: No Transfers Transfer Destination Bed,Chair Transfer Technique ambulated without AD Transfer Ability Level of Assist Contact Guard Assistance,Use of Upper Extremities Comments Mobility Comments pt's spouse in room with pt. pt with some confusion and has to refer to spouse for answers regarding home set up. completed sit to stand from chair SBA to CGA. ambulated in room without AD requiring CGA. presents with very unsteady shuffling gait with ( +) LOB to the L posteriorly requiring CGA for rebalancing and cues for steadiness. pt sat on bed and completed supine <>sit SBA. educated pt on safety. Assessed pt's ambulation using FWW and completed with SBA to CGA. continues to be unsteady but better compared to without AD. pt agreed to stay up on chair. positioned on chair. call light and table placed within reach. Left pt with spouse in room. Talked to manager case and the doctor regarding pt's mobility level and assistance needed and at this time, pt will need 24/7 assistance available due to balance issues and safety issues. Gait Assessment Gait Gait Assistance Required: Contact Guard Assist Distance (Feet) 30 Able to Maintain Weight Bearing Status Yes During Gait Assistive Devices Assistive Device None,Gait Belt,Front Wheeled Walker Orthotic/Prosthetic Devices or Brace: No Gait Deviations General Gait Pattern Decreased Stride Length, Decreased Feet Clearance, Narrow Based Gait Factors Limiting Gait Function Factors Limiting Gait Function Poor Balance,Poor Safety Awareness Comments Gait Comments pls refer to mobility section for details PT-Balance Assessment Sitting Balance and Reactions Static Sitting Balance Ability Good Dynamic Sitting Balance Ability Good Standing Balance and Reactions Static Standing Balance Ability Fair Dynamic Standing Balance Ability Fair Device Used without AD M5 PT-IP Objective Assessments Start: 06/22/20 15:00 Freq: NEEDED Status: Active Protocol: Document 06/22/20 10:00 AB (Rec: 06/22/20 15:22 AB [id number]) Orientation Orientation/Cognition Level of Alertness Alert Orientation Name Safety Awareness Decreased Safety Awareness Memory Description Short Term Impaired,Mcfp Impaired Comments with confusion Gross Range of Motion Lower Extremity ROM Assessment Within Functional Limits Strength Lower Extremity Strength Hip 4-/5 Knee 4-/5 Sensation Assessment Sensation Gross Sensation WNL Muscle Tone Muscle Tone WNL Yes M6 PT-IP Treatment Start: 06/22/20 15:00 Freq: NEEDED Status: Active Protocol: Document 06/22/20 10:00 AB (Rec: 06/22/20 15:22 AB [id number]) Physical Therapy Treatment Education Education Provided Safety M7 PT-IP Assessment and Plan Start: 06/22/20 15:00 Freq: NEEDED Status: Active Protocol: Document 06/22/20 10:00 AB (Rec: 06/22/20 15:22 AB [id number]) PT Summary Assessment and Plan Potential Rehabilitation Potential Good Status of Condition at Evaluation Stable Summary Impairments Pain,ROM,Strength,Balance, Coordination,Cognition,Bed Mobility,Transfers,Gait, Activity Tolerance Assessment Summary pt requiring CGA with ambulation without AD but with (+) LOB and requires assist to recovery. pt with slight confusion requires cues for redirections. pt requires 24/ 7 assistance at this time for safety and balance issues and is a fall risk. informed manager case regarding OT eval request for cognitive assessment. revenue cycle manager informed PT that the plan is for pt to go to [facility] but has to to independent with mobility and ambulation. will continue to assess pt's progress and work towards safe d/c plan. Goals Bed Mobility Goal Independent Transfer Goal Independent Gait Goal Independent Gait Distance 250 Other Goals up/down 1 step without AD SBA Days to Meet Goals 5 Frequency of Treatment Frequency Of Treatment Once a Day Treatment Plan Physical Therapy Treatment Plan Bed Mobility Training,Transfer Training,Gait Training, Therapeutic Exercise,Balance Retraining,Discharge Planning, Neuromuscular Re-ed, Coordination Retraining Precautions Other Precautions falls Recommendations To Nursing Amount of Assist Needed 1 Person Assist Discharge Recommendations PT Discharge Recommendations SNF Rehab Transportation Needs at Discharge Wheelchair/Cabulance
--- NOTE | 2020-06-22 11:50 | OT.IP.EVAL ---
Current Diagnoses Poisoning by selective serotonin and norepinephrine reuptake inhibitors, intentional self-harm, initial encounter (06/20/20) Past Medical History (Last Updated 06/20/20 @ 17:50 by Yue Dillon MD) Depression Occupational Therapy Inpatient Evaluation/Re-Eval M1 PT/OT-IP Prior Functional Status Start: 06/22/20 12:02 Freq: NEEDED Status: Active Protocol: Document 06/22/20 12:02 [facility] (Rec: 06/22/20 12:30 [facility] [id number]) Medical Review Prior Functional Status Medical History Reviewed Yes Communication Independent. Mobility and Gait Pt states did not use any devices for walking. Activities of Daily Living and IADL's Pt states completely independent for all ADl, IADL, and driving needs. Social History Household Members spouse Living Arrangements House Number of Floors (Floors) One Floor Number of Stairs To Enter/Railing? 1 step from either the front or the garage to get into the house. Home Environment Standard Height Toilet,Tub/ Shower Additional Social History Comment Pt has two adult children that live in [place]. M2 OT-IP Current Condition Start: 06/22/20 12:02 Freq: Status: Active Protocol: Document 06/22/20 12:02 [facility] (Rec: 06/22/20 12:30 [facility] [id number]) Occupational Therapy Current Condition Current Condition Evaluation Date 06/22/20 Treatment Diagnosis Depression/Suicidal Ideation. Diagnosis Onset Date 06/20/20 M3 OT- IP Subjective and Pain Start: 06/22/20 12:02 Freq: Status: Active Protocol: Document 06/22/20 12:02 [facility] (Rec: 06/22/20 12:30 [facility] [id number]) OT- Subjective Occupational Therapy Visit Type Type Initial Evaluation Visit Start Time 11:05 Visit Stop Time 11:50 Total Visit Minutes 45 Occupational Therapy Visit Comments Patient Comments Pt willing to do OT eval. Patient/Caregiver Goals Pt open to going inpt. psych facility. OT Pain Assessment Pain When Pain Assessed At Rest Pain Present Pain Present Denied Pain M4 OT- IP ADL's Start: 06/22/20 12:02 Freq: Status: Active Protocol: Document 06/22/20 12:02 [facility] (Rec: 06/22/20 12:30 [facility] [id number]) OT [id number] Comments OT Self-Feeding Comments Not at meal time. OT ADL-Grooming General Evaluation Grooming Ability Independent OT ADL-Dressing General Eval Lower Body Dressing Ability Independent Areas Needing Assistance Socks Comments OT Dressing Comments Pt able to independently momo/ doff socks while seated. OT ADL-Toileting General Evaluation Toileting Ability Standby Assistance Comments OT Toileting Comments Pt had loss of balance while turning to the toilet and able to reach out to the grab bar to regain her balance. OT ADL-Bathing Comments OT Bathing Comments Nursing aid assist earlier and able to do while seated per staff. M5 OT- IP IADL's Start: 06/22/20 12:02 Freq: Status: Active Protocol: Document 06/22/20 12:02 [facility] (Rec: 06/22/20 12:30 [facility] [id number]) OT-Instrumental Activities of Daily Living Medication Management Medication Management Comments At this time if going home would be best to have provide supervision and assist as needed. Money Management Money Management Comments At this time if going home would be best to have provide supervision and assist as needed. Meal Preparation Meal Preparation Comments At this time if going home would be best to have provide supervision and assist as needed. Cell Installer Cell Installer Comments At this time if going home would be best to have provide supervision and assist as needed. M6 OT- IP Functional Cognition Start: 06/22/20 12:02 Freq: Status: Active Protocol: Document 06/22/20 12:02 [facility] (Rec: 06/22/20 12:30 [facility] [id number]) Cognitive Factors Limiting Selfcare Function Cognitive Ability Level of Alertness Alert Patient Orientation Name,Month,Year,Day of Week, Place,Situation Attention Span Ability Capable of Focused Attention, Capable of Sustained Attention Ability to Follow Commands Able to Follow One Step Commands Memory Description Short Term Impaired,Working Impaired Safety Awareness Underestimates Need for Assistance Problem Solving Ability Needs Assist to Identify Solutions Executive Function Ability Unable to Remember Details Cognitive Tests SLUMS Pt scored 21/30 , normal score for pt's level of education is 25/30. Pt having difficulty with math calculation, only able to recall 3/5 objects after time passed, not able to draw the clock hands correctly after time given, and able to recall 2/4 questions correctly after paragraph read. Pt's score implies mild cognitive deficits, however her depression can also be affecting her memory and cognition. Cognitive Comments Cognitive Assessment Comments Pt scored 97 seconds on [place] making Part b which implies mild deficits for task switching, visual attention, mental flexibility, speed of processing, and task switching. Pt realizing that it would be best at this time for pt to not drive. pt aware that she is not thinking well , however had good insight to as to why she almost had a loss of balance , I was not looking where I was going . OT- Vision and Hearing OT- Hearing Assessment OT- Hearing Assessment WFL OT- Vision Assessment Visual Acuity Glasses All The Time Visual Attentiveness WFL Occular Pursuits WFL Visual Convergence WFL Visual Carbajal WFL M7 OT- IP Mobility and Balance Start: 06/22/20 12:02 Freq: Status: Active Protocol: Document 06/22/20 12:02 [facility] (Rec: 06/22/20 12:30 [facility] [id number]) OT-Transfer Assessment Sit to and From Stand Sit to and from Stand Standby Assistance Transfers Transfer Ability Standby Assistance,Contact Guard Assistance Technique Transfer Destination Chair,Toilet Transfer Technique Stand Step Pivot Devices Transfer Assistive Devices None Comments Mobility Comments Close SBA while in the room and had loss of balance while turning to the toilet and needing use of grab bar to regain her balance. OT- Gait Assessment Comments Gait Ability Comments Close SBA to CGA with no device. Pt has a wide base of support. Pt states usually wears her shoes at home. OT- Balance Assessment Sitting Balance and Reactions Static Sitting Balance Ability Normal Dynamic Sitting Balance Ability Normal Standing Balance and Reactions Static Standing Balance Ability Good Dynamic Standing Balance Ability Fair M8 OT- IP Objective Assessments Start: 06/22/20 12:02 Freq: Status: Active Protocol: Document 06/22/20 12:02 [facility] (Rec: 06/22/20 12:30 [facility] [id number]) OT Gross Range of Motion Upper Extremity Range of Motion Assessment Within Functional Limits OT Strength Upper Extremity Strength Assessment Within Functional Limits OT- Coordination Assessment Upper Extremity Finger to Nose Test Within Functional Limits OT-Muscle Tone Assessment Muscle Tone WNL Yes M9 OT- IP Assessment and Plan Start: 06/22/20 12:02 Freq: Status: Active Protocol: Document 06/22/20 12:02 [facility] (Rec: 06/22/20 12:30 [facility] [id number]) OT Summary Assessment and Plan Potential Rehabilitation Potential Good Analytic Complexity at Evaluation Low Summary OT Impairments Balance,Functional Mobility, Dressing,Toileting,Bathing, Toilet Transfers,Shower Transfers,Activity Tolerance Progress Towards Goals Progressing Toward Goals Assessment Summary Pt low complexity and here due to overdose due to depression /suicidal ideation. Pt's main barriers are decreased balance , STM, and higher level cognitive needs. Pt looking to possible go to geriatric pysch facility versus home. Goals Self-Feeding Goal Independent Grooming Goal Independent Dressing Goal Independent Toileting Goal Independent Bathing Goal Independent Toilet Transfer Goal Independent Shower Transfer Goal Independent OT-Other Goals Pt to be able to incorporate stress management techniques during daily needs. Days to Meet Goals 5 Frequency of Treatment Frequency Of Treatment Once a Day Treatment Plan OT Treatment Plan ADL Training,Functional Cognition Training,Functional Mobility,Patient/Family Education,Discharge Planning Other Treatment Recommendations and Next stress management Treatment Focus Discharge Recommendations OT Discharge Recommendations Home with Assistance Other Discharge Recommendations Inpatient pyschiatric care Transportation Needs at Discharge Private Vehicle
--- NOTE | 2020-06-22 12:53 | PM.PN.1 ---
Subjective Subjective Date Patient Seen: 06/22/20 Interval history: Patient is 70-year-old female with history of depression and anxiety admitted after intentional overdose of lorazepam and trazodone. Patient is tentatively set up to transfer to [facility] in [place], [place]. Per PT evaluation, she is still a little unstable with her balance requiring standby contact assist although I expect continued improvement to where she can be discharged tomorrow. She was also evaluated by OT who notes some cognitive impairment with MMSE of 21/30 likely due to major depression. Patient remains cooperative with care and consenting for voluntary inpatient psychiatry treatment. Exam Vital Signs (past 8 hours): - 06/22/20 07:43 06/22/20 12:40 Temperature 97.6 F 97.5 F L Pulse Rate 78 76 Respiratory Rate 17 20 Blood Pressure 128/76 130/72 Pulse Oximetry 94 95 Oxygen Delivery Method Room Air Oxygen Flow Rate 0 Narrative Exam Narrative: Patient is alert, responds to questions appropriately though seems to have some forgetfulness, with flat affect. Objective Labs Result Diagrams: 06/20/20 07:17 06/21/20 04:30 Labs: Laboratory Results - last 24 hr 06/20/20 06/21/20 07:17 22:00 Serum Osmolality 273 L Nasal Screen MRSA (PCR) Negative for mrsa [facility] Medical History (Updated 06/20/20 @ 17:50 by Yue Dillon MD) Depression Family History (Updated 06/20/20 @ 17:50 by Yue Dillon MD) Other Family history unobtainable Social History household members: spouse Smoking Status: Former smoker alcohol intake: never Assessment & Plan Assessment & Plan narrative: Patient is 70-year-old female with history of depression admitted to the hospital following intentional polysubstance overdose 1. Major depression, severe -admitted with intentional overdose in suicide attempt written note left for -patient was initially quite somnolent but has been fully awake since yesterday -I expect balance and strength will sufficiently improved to where she can be discharged to inpatient psychiatry tomorrow 2. Acute hyponatremia, resolved Quality VTE Deep Vein Thrombosis/Pulmonary Embolism Present on Admission: No
--- NOTE | 2020-06-22 13:08 | CM.SWNOTE ---
MH Placement Update Placed calls to the following inpatient geriatric psych units : [facility]- had to , did not hear back [facility]- [facility] Spoke w/Leopoldo at [facility] P# [phone] who said their [facility], older adults unit, had plenty of beds so faxed clinical packet to F# [phone]. Then collaborated w/therapy team who explained patient appears to still be below baseline functionally and remains very unsteady on her feet. W/walker she does better, OT completed SLUMS which indicates , Dr Torres suspects this acute cognitive decline likely sec to depression, not dementia. This ONLINE CONTENT EDITOR, Dr Torres, and therapy team agree, if patient can improve functionally over the next 24 hrs, she will be a strong candidate for geriatric psych placement. Contacted Leopoldo at [facility] to update. He suggested ONLINE CONTENT EDITOR call again tomorrow, they will need a completed EKG and patient can admit w/a walker or cane but will need to be able to complete all ADLs indp., bathrooms do have shower chairs. Updated team. Spoke w/patient to update, she remains agreeable to plan. Patient remains a good candidate for inpatient psychiatric care/stabilization. Plan: Attempt geriatric psych unit Wednesday if appropriate vs home w/ spouse and close outpatient f/u (ONLINE CONTENT EDITOR will need to reassess for safety planning) HU Domínguez
[2020-06-23 03:30] VITALS: BP 142/75; PULSE 92; RESP 18; TEMP 36.8; O2SAT 94
[2020-06-23 08:00] VITALS: BP 133/77; PULSE 70; RESP 15; TEMP 36.3; O2SAT 96
--- NOTE | 2020-06-23 10:15 | PT.IPTN ---
Current Diagnoses Poisoning by selective serotonin and norepinephrine reuptake inhibitors, intentional self-harm, initial encounter (06/20/20) Physical Therapy Treatment Note M2 PT-IP Current Condition Start: 06/22/20 15:00 Freq: NEEDED Status: Active Protocol: Document 06/22/20 10:00 AB (Rec: 06/22/20 15:22 AB [id number]) Physical Therapy Current Condition Current Condition Evaluation Date 06/22/20 Treatment Diagnosis intentional overdose; difficulty in walking Onset Date 06/20/20 Precautions Other Precautions falls; suicidal ideation M3 PT-IP Subjective Start: 06/22/20 15:00 Freq: NEEDED Status: Active Protocol: Document 06/23/20 10:14 AW (Rec: 06/23/20 10:24 AW [id number]) Subjective Physical Therapy Visit Type Type Treatment Note Visit Start Time 09:58 Visit Stop Time 10:13 Total Visit Minutes 15 Notes Pt's spouse was present at session Number of HEALTH CARE CONSULTANT Visits 0 Physical Therapy Visit Comments Patient Comments pt is agreeable to do PT Therapy Pain Assessment Pain Present Pain Present Denied Pain M4 PT-IP Mobility and Gait Start: 06/22/20 15:00 Freq: NEEDED Status: Active Protocol: Document 06/23/20 10:14 AW (Rec: 06/23/20 10:24 AW [id number]) PT-Bed Mobility Assessment Supine to Sit Supine to Sit Independent Sit to Supine Sit to Supine Independent PT-Transfer Assessment Sit to and From Stand Sit to and from Stand Independent,Use of Upper Extremities Equipment Transfer Assistive Device None Orthotic/Prosthetic Devices or Brace: No Transfers Transfer Destination Bed,Chair Transfer Technique Stand Step Pivot Transfer Ability Level of Assist Independent Comments Mobility Comments Pt was sitting up in the chair as PT arrived. She was pleasant and cooperative. She stood without assist and ambulated around the unit a total of 400 feet SBA. On return to the room, she demonstrated independent bed mobility and then transferred back to the chair without assist. Pt was left with her spouse in the room. Gait Assessment Gait Gait Assistance Required: Standby Assistance Distance (Feet) 400 Assistive Devices Assistive Device None,Gait Belt,Straight Cane Gait Deviations General Gait Pattern Narrow Based Gait Factors Limiting Gait Function Factors Limiting Gait Function Poor Balance,Poor Safety Awareness Comments Gait Comments Pt completed 4-item Dynamic Gait Index with score of 10/12 . Single points were deducted for slight change in speed during gait with head turns and gait with nods. Stair Climbing Assessment Evaluation Level of Assist On Stairs Standby Assistance Technique/Endurance Number of Steps Climbed 3 Stair Climbing Set # Repetitions (reps) 2 PT-Balance Assessment Sitting Balance and Reactions Static Sitting Balance Ability Good Dynamic Sitting Balance Ability Good Standing Balance and Reactions Static Standing Balance Ability Good Dynamic Standing Balance Ability Good Device Used no AD Functional Assessments Functional Tests Dynamic Gait Index 4-item DGI: 10/12 M5 PT-IP Objective Assessments Start: 06/22/20 15:00 Freq: NEEDED Status: Active Protocol: Document 06/22/20 10:00 AB (Rec: 06/22/20 15:22 AB [id number]) Orientation Orientation/Cognition Level of Alertness Alert Orientation Name Safety Awareness Decreased Safety Awareness Memory Description Short Term Impaired,Bull Driver Impaired Comments with confusion Gross Range of Motion Lower Extremity ROM Assessment Within Functional Limits Strength Lower Extremity Strength Hip 4-/5 Knee 4-/5 Sensation Assessment Sensation Gross Sensation WNL Muscle Tone Muscle Tone WNL Yes M6 PT-IP Treatment Start: 06/22/20 15:00 Freq: NEEDED Status: Active Protocol: Document 06/23/20 10:14 AW (Rec: 06/23/20 10:24 AW [id number]) Physical Therapy Treatment Education Education Provided Safety M7 PT-IP Assessment and Plan Start: 06/22/20 15:00 Freq: NEEDED Status: Active Protocol: Document 06/23/20 10:14 AW (Rec: 06/23/20 10:24 AW [id number]) PT Summary Assessment and Plan Potential Rehabilitation Potential Good Status of Condition at Evaluation Stable Summary Impairments Pain,ROM,Strength,Balance, Coordination,Cognition,Bed Mobility,Transfers,Gait, Activity Tolerance Progress Towards Goals Progressing Toward Goals Assessment Summary Pt required no more than SBA during gait with cane and gait without assistive device. She is alert and able to follow multi-step commands. She scored 10/12 on 4-item Dynamic Gait Index which is on the low normal end for age-matched peers (Diana and Zeynep, 2006). Pt will be safe to discharge home with assist or to another facility once medically cleared. Goals Bed Mobility Goal Independent Transfer Goal Independent Gait Goal Independent Gait Distance 250 Other Goals up/down 1 step without AD SBA Days to Meet Goals 3 Frequency of Treatment Frequency Of Treatment Once a Day Treatment Plan Physical Therapy Treatment Plan Bed Mobility Training,Transfer Training,Gait Training, Therapeutic Exercise,Balance Retraining,Discharge Planning, Neuromuscular Re-ed, Coordination Retraining Precautions Other Precautions falls Recommendations To Nursing Amount of Assist Needed Standby Assistance Discharge Recommendations PT Discharge Recommendations Home with Assistance, Outpatient PT Transportation Needs at Discharge Private Vehicle
--- NOTE | 2020-06-23 10:15 | PM.DS.1 ---
History of Present Illness History of Present Illness Chief complaint: Altered Mental status Narrative: The patient is a 70-year-old female with a history of depression. Patient took an overdose last evening. Around 03 11 she took 50 mg tablets of trazodone. Patient left a note. She was found by her somnolent and minimally responsive. Patient was brought into the emergency department for evaluation. She was found to have a sodium of 128. Head CT was obtained. Poison control was contacted and recommended observation and monitoring her QT interval. The patient has been in the emergency department for 10 hours. She continues to be very somnolent and unarousable. The patient initially was able to answer questions. She stated she was at [facility] because she took an overdose last evening. She quickly fell back to sleep. She gets a she had a mild headache, no shortness of breath, and no dysuria. Otherwise the patient was sleepy again and minimally arousable. She is admitted to the hospital for detoxification following an overdose of multiple substances. Discharge Providers Provider Date of admission: 06/20/20 16:55 Discharge Date: 06/23/20 Consults: 06/20/20 07:36 Consult to CROSSING TENDER - Building Components Designer Stat Comment: CROSSING TENDER Consult: Behavioral Health Assess 06/21/20 16:25 Consult to Physical Therapy Evaluate & Treat Comment: Physician Instructions: Evaluate and Treat 06/22/20 10:24 Consult to Occupational Therapy Evaluate & Treat Comment: Physician Instructions: Evaluate and treat Discharge provider: Uri Torres MD Summary Hospital Course Discharge Diagnosis: 1. Intentional polysubstance overdose 2. Major depression, severe Patient was admitted due to intentional overdose of prescription lorazepam and trazodone with having left note for . She was quite somnolent initially and after about 24 hours started to wake up. She had no abnormal findings on EKG or telemetry. She was noted to have impaired balance with physical therapy which has substantially improved over the past couple of days to where she is now able to ambulate on her own without assistance. She also was noted to have some impairment of memory with occupational therapy evaluation though this is likely result of her major depression. Patient has agreed to have voluntary inpatient psychiatric evaluation and being transferred to [facility] in [facility]. Status at Discharge Cognitive/behavioral status at discharge: oriented Functional status at discharge: independent ambulation Overall status at discharge: patient is back to baseline Time Spent with Patient Time spent: Less than 30 minutes Exam Vital Signs (past 8 hours): - 06/23/20 03:30 06/23/20 08:00 Temperature 98.2 F 97.3 F L Pulse Rate 92 H 70 Respiratory Rate 18 15 Blood Pressure 142/75 H 133/77 Pulse Oximetry 94 96 Oxygen Delivery Method Room Air Oxygen Flow Rate 0 Objective Labs Result Diagrams: 06/20/20 07:17 06/21/20 04:30 PFS Medical History (Updated 06/20/20 @ 17:50 by Yue Dillon MD) Depression Family History (Updated 06/20/20 @ 17:50 by Yue Dillon MD) Other Family history unobtainable Social History household members: spouse Smoking Status: Former smoker alcohol intake: never Discharge Plan Discharge Plan Patient Disposition: Xfer Psychiatric Hosp Other facility: [place], [place] Discharge Health Status Multidrug resistant organism: No MDRO Precautions: [place] Diet/Activity/Treatments Diet: Regular Liquid consistency: Normal/Thin Food texture: Regular Quality VTE Deep Vein Thrombosis/Pulmonary Embolism Present on Admission: No
--- NOTE | 2020-06-23 10:36 | CM.DPC ---
Addendum entered by HU Martinez 06/23/20 15:03: ADD: SW met bedside with pt and spouse and updated on placement difficulties and pt and spouse still confirm they feel that Inpt Voluntary placement still needed at this time and pt discussed some of her fear/uncertainty about going somewhere she has not had experience with but discussed the benefits of temporary/brief inpt tx towards potential for increased skills and enjoyment of life without the panic/fear/anxiety/depression and pt and spouse very agreeable. SW provided them with the information on [facility] program, packing list, visitation, etc. to read through this evening as pt likely will remain overnight with plans for placement tomorrow. BF Addendum entered by HU Martinez 06/23/20 13:50: ADD: Return call from [facility] stating they have concerns that updated PT note states pt is SBA and had gait belt and they need to have PT note that states pt can d/c without any assist needed and cannot review again until tomorrow [facility] 06/24/20 even after discussion that per PT SBA and gait belt is standard protocol for the hospital. [facility] still has lots of openings for tomorrow. SW updated PT regarding above and they are aware for assessment with pt tomorrow. SW called following Voluntary Inpt facilities: [facility]: do not accept older than 65 [place]: [facility]: [facility]: only male bed available [facility]: left msg but faxed referral anyways [facility]: possible bed later today but waiting to hear if being taken by [facility] for an involuntary pt, but willing to review. SW faxed referral to both [facility] and [facility]. SW updated RN, MD, and plastic block boiler reliner. Per MD, frustration as pt is medically stable to d/c and if remains and no placement found tomorrow MD feels good chance for safety planning for the community. Plan: SW to follow closely for review from 2 Inpt facilities above as well sending [facility] updated PT note tomorrow regarding pt's independence with ADL's. HU Martinez Addendum entered by HU Martinez 06/23/20 11:43: ADD: HONG called [facility] at 1140 and confirmed they received the updated clinicals but they are still reviewing with their physician to see if they can accept and will call back with update. BF Original Note: DCP Voluntary MH tx planning: Per MD, pt has remained stable and medically ready for d/c to Inpt MH tx today and writing discharge for today. EKG ordered by RN and RT aware and will prioritize and SW requested PT to prioritize pt today if possible as both EKG and PT note needed for pt to d/c to Inpt MH facility. SW called [facility] and confirmed they still have pt's referral from yesterday and updated them that EKG, PT note, RN notes, and updated clinicals will be faxed today and they anticipate likely accepting pt after updated clinicals reviewed. EKG, prog note and discharge summary, RN notes, Labs, PT note from today all faxed to requested [phone] for [facility] to review for their [facility] facility in [place]. Plan: SW to follow closely for [facility] final review to determine if they can accept pt for voluntary MH tx today and updating pt and spouse bedside. HU Martinez
[2020-06-23 12:44] VITALS: BP 137/79; PULSE 103; RESP 16; TEMP 36.6; O2SAT 99
[2020-06-23 16:10] VITALS: BP 165/88; PULSE 90; RESP 19; TEMP 36.6; O2SAT 97
[2020-06-23 17:37] LABS: COVID19 -Nasal RAPID Negative (Negative)
--- NOTE | 2020-06-23 19:49 | PC.NURSE ---
Lina Nursing Director Graphics with [facility] Psych unit called requesting info and documentation to determine acceptance ability. Documents faxed per request. After reviewing documentation L[facility] called to say pt is not suited for their unit, unable to accept. She states it would be best to place at [facility] if they have beds and willing to accept.
[2020-06-23 20:37] VITALS: BP 148/87; PULSE 87; RESP 18; TEMP 36.8; O2SAT 99
[2020-06-23] MEDS: ACETAMINOPHEN 325 MG TABLET 650 MG PO (22:12)
[2020-06-23 23:00] VITALS: BP 160/93; PULSE 86; RESP 18; TEMP 36.3; O2SAT 98
--- NOTE | 2020-06-24 00:34 | PC.NURSE ---
2328: patient is alert and oriented. Breath sounds CTA with RA sat of 98%. HRR. BP elevated at 160/93 but patient expressing anxiety regarding discharge in a.m. Denies nausea. BT present and abdomen is soft. Denies dysuria, frequency or urgency with urination. Is independent with mobility and steady on feet. Admits to slight headache but had Tylenol earlier and states pain is tolerable at 2/10. Wearing bilateral calf SCD's. Fall risk score is low. 1:1 observation due to admission diagnosis of overdose.
[2020-06-24 03:06] VITALS: BP 154/87; PULSE 89; RESP 18; TEMP 36.6; O2SAT 98
[2020-06-24 07:27] VITALS: BP 159/96; PULSE 89; RESP 16; TEMP 36.1; O2SAT 99
--- NOTE | 2020-06-24 08:48 | PT.IPTN ---
Current Diagnoses Poisoning by selective serotonin and norepinephrine reuptake inhibitors, intentional self-harm, initial encounter (06/20/20) Physical Therapy Treatment Note M2 PT-IP Current Condition Start: 06/22/20 15:00 Freq: NEEDED Status: Active Protocol: Document 06/22/20 10:00 AB (Rec: 06/22/20 15:22 AB [id number]) Physical Therapy Current Condition Current Condition Evaluation Date 06/22/20 Treatment Diagnosis intentional overdose; difficulty in walking Onset Date 06/20/20 Precautions Other Precautions falls; suicidal ideation M3 PT-IP Subjective Start: 06/22/20 15:00 Freq: NEEDED Status: Active Protocol: Document 06/24/20 08:47 AW (Rec: 06/24/20 08:56 AW [id number]) Subjective Physical Therapy Visit Type Type Treatment Note Visit Start Time 08:35 Visit Stop Time 08:47 Total Visit Minutes 12 Number of CREW CHIEF Visits 0 Physical Therapy Visit Comments Patient Comments I haven't slept much the last few days. Therapy Pain Assessment Pain Present Pain Present Denied Pain M4 PT-IP Mobility and Gait Start: 06/22/20 15:00 Freq: NEEDED Status: Active Protocol: Document 06/24/20 08:47 AW (Rec: 06/24/20 08:56 AW [id number]) PT-Bed Mobility Assessment Supine to Sit Supine to Sit Independent Sit to Supine Sit to Supine Independent PT-Transfer Assessment Sit to and From Stand Sit to and from Stand Independent,Use of Upper Extremities Equipment Transfer Assistive Device None Orthotic/Prosthetic Devices or Brace: No Transfers Transfer Destination Bed Transfer Technique Stand Step Pivot Transfer Ability Level of Assist Independent Comments Mobility Comments Pt was lying in bed as PT arrived. She completed all bed mobility, transfers, and gait independently. She was able to bend over to pick items up from the floor independently. Gait Assessment Gait Gait Assistance Required: Independent Distance (Feet) 500 Assistive Devices Assistive Device None,Gait Belt Gait Deviations General Gait Pattern Flexed Trunk Factors Limiting Gait Function Factors Limiting Gait Function Decreased Activity Tolerance Comments Gait Comments Gait belt donned as per hospital protocol. Pt demonstrated good static and dynamic balance and was able to walk around the unit, around workstations, up and down stairs without assist. She required no assistive device. Stair Climbing Assessment Evaluation Level of Assist On Stairs Independent Technique/Endurance Number of Steps Climbed 3 Stair Climbing Set # Repetitions (reps) 2 PT-Balance Assessment Sitting Balance and Reactions Static Sitting Balance Ability Normal Dynamic Sitting Balance Ability Normal Standing Balance and Reactions Static Standing Balance Ability Good Dynamic Standing Balance Ability Good Device Used no AD M5 PT-IP Objective Assessments Start: 06/22/20 15:00 Freq: NEEDED Status: Active Protocol: Document 06/22/20 10:00 AB (Rec: 06/22/20 15:22 AB [id number]) Orientation Orientation/Cognition Level of Alertness Alert Orientation Name Safety Awareness Decreased Safety Awareness Memory Description Short Term Impaired,Skilled Nursing Impaired Comments with confusion Gross Range of Motion Lower Extremity ROM Assessment Within Functional Limits Strength Lower Extremity Strength Hip 4-/5 Knee 4-/5 Sensation Assessment Sensation Gross Sensation WNL Muscle Tone Muscle Tone WNL Yes M6 PT-IP Treatment Start: 06/22/20 15:00 Freq: NEEDED Status: Active Protocol: Document 06/24/20 08:47 AW (Rec: 06/24/20 08:56 AW [id number]) Physical Therapy Treatment Education Education Provided Safety M7 PT-IP Assessment and Plan Start: 06/22/20 15:00 Freq: NEEDED Status: Active Protocol: Document 06/24/20 08:47 AW (Rec: 06/24/20 08:56 AW [id number]) PT Summary Assessment and Plan Potential Rehabilitation Potential Good Status of Condition at Evaluation Stable Summary Impairments Pain,ROM,Strength,Balance, Coordination,Cognition,Bed Mobility,Transfers,Gait, Activity Tolerance Progress Towards Goals Safe For Discharge,Goals Met Assessment Summary Pt was alert and able to follow multi-step commands. She presents with increased anxiety but no affect on mobility independence. Pt is safe to discharge when medically stable. No further acute PT needs are identified. PT will discharge orders at this time. Frequency of Treatment Frequency Of Treatment Discharge Recommendations To Nursing Amount of Assist Needed Independent,Standby Assistance Discharge Recommendations PT Discharge Recommendations Home with Assistance, Outpatient PT Transportation Needs at Discharge Private Vehicle
--- NOTE | 2020-06-24 09:06 | CM.DANOTE ---
Addendum entered by Nayeli Hess 06/24/20 10:57: In addition to the below PROMOTIONAL DEMONSTRATOR placed call to [facility] and they cannot accept due to current acuity at facility. Also left vm with Randal Childress. KJS Original Note: DCP/continued: Reviewed chart. Per notes, patient medically stable for discharge. Placed call to Lauren at [facility] re: bed availability. Meg reports that they have 1 geriatric bed available. Meg requesting all clinical and updated therapy note be faxed to [phone]. All requested information faxed. Awaiting return phone call on whether or not they can accept today. P: Pending. HU Beaver
[2020-06-24] MEDS: SODIUM CHLORIDE NASAL SPRAY 1 SPRAY NASAL (11:31)
[2020-06-24 11:45] VITALS: BP 142/86; PULSE 85; RESP 16; TEMP 36.4; O2SAT 98
--- NOTE | 2020-06-24 11:57 | OT.IP.TRT ---
Current Diagnoses Poisoning by selective serotonin and norepinephrine reuptake inhibitors, intentional self-harm, initial encounter (06/20/20) Occupational Therapy Treatment Note M2 OT-IP Current Condition Start: 06/22/20 12:02 Freq: Status: Active Protocol: Document 06/22/20 12:02 [facility] (Rec: 06/22/20 12:30 [facility] [id number]) Occupational Therapy Current Condition Current Condition Evaluation Date 06/22/20 Treatment Diagnosis Depression/Suicidal Ideation. Diagnosis Onset Date 06/20/20 M3 OT- IP Subjective and Pain Start: 06/22/20 12:02 Freq: Status: Active Protocol: Document 06/24/20 12:05 [facility] (Rec: 06/24/20 12:11 [facility] [id number]) OT- Subjective Occupational Therapy Visit Type Type Progress Note Visit Start Time 11:45 Visit Stop Time 11:57 Total Visit Minutes 12 Notes Pt's spouse present for session. OT Pain Assessment Pain When Pain Assessed At Rest Pain Present Pain Present Denied Pain M4 OT- IP ADL's Start: 06/22/20 12:02 Freq: Status: Active Protocol: Document 06/22/20 12:02 [facility] (Rec: 06/22/20 12:30 [facility] [id number]) OT [id number] Comments OT Self-Feeding Comments Not at meal time. OT ADL-Grooming General Evaluation Grooming Ability Independent OT ADL-Dressing General Eval Lower Body Dressing Ability Independent Areas Needing Assistance Socks Comments OT Dressing Comments Pt able to indepedently momo/ doff socks while seated. OT ADL-Toileting General Evaluation Toileting Ability Standby Assistance Comments OT Toileting Comments Pt had loss of balance while turning to the toilet and able to reach out to the grab bar to regain her balance. OT ADL-Bathing Comments OT Bathing Comments Nursign aid asist earlier and able to do while seated per staff. M5 OT- IP IADL's Start: 06/22/20 12:02 Freq: Status: Active Protocol: Document 06/22/20 12:02 [facility] (Rec: 06/22/20 12:30 [facility] [id number]) OT-Instrumental Activities of Daily Living Medication Management Medication Management Comments At this time if going home would be best to have provide supervision and assist as needed. Money Management Money Management Comments At this time if going home would be best to have provide supervision and assist as needed. Meal Preparation Meal Preparation Comments At this time if going home would be best to have provide supervision and assist as needed. Boiler Installer Boiler Installer Comments At this time if going home would be best to have provide supervision and assist as needed. M6 OT- IP Functional Cognition Start: 06/22/20 12:02 Freq: Status: Active Protocol: Document 06/24/20 12:05 [facility] (Rec: 06/24/20 12:11 [facility] [id number]) Cognitive Factors Limiting Selfcare Function Cognitive Tests SLUMS Pt performed SLUMS assessment. Pt sitting up in bed. Pt scored a 29/30 missing a question requiring her to repeat a series of 4 numbers backwards. Pt was pleasent and calm throughout session. M7 OT- IP Mobility and Balance Start: 06/22/20 12:02 Freq: Status: Active Protocol: Document 06/22/20 12:02 [facility] (Rec: 06/22/20 12:30 [facility] [id number]) OT-Transfer Assessment Sit to and From Stand Sit to and from Stand Standby Assistance Transfers Transfer Ability Standby Assistance,Contact Guard Assistance Technique Transfer Destination Chair,Toilet Transfer Technique Stand Step Pivot Devices Transfer Assistive Devices None Comments Mobility Comments Close SBA while in the room and had loss of balance while turning to the toilet and needing use of grab bar to regain her balance. OT- Gait Assessment Comments Gait Ability Comments Close SBA to CGA with no device. Pt has a wide base of support. Pt states usually wears her shoes at home. OT- Balance Assessment Sitting Balance and Reactions Static Sitting Balance Ability Normal Dynamic Sitting Balance Ability Normal Standing Balance and Reactions Static Standing Balance Ability Good Dynamic Standing Balance Ability Fair M8 OT- IP Objective Assessments Start: 06/22/20 12:02 Freq: Status: Active Protocol: Document 06/22/20 12:02 [facility] (Rec: 06/22/20 12:30 [facility] [id number]) OT Gross Range of Motion Upper Extremity Range of Motion Assessment Within Functional Limits OT Strength Upper Extremity Strength Assessment Within Functional Limits OT- Coordination Assessment Upper Extremity Finger to Nose Test Within Functional Limits OT-Muscle Tone Assessment Muscle Tone WNL Yes M9 OT- IP Assessment and Plan Start: 06/22/20 12:02 Freq: Status: Active Protocol: Document 06/24/20 12:05 [facility] (Rec: 06/24/20 12:11 [facility] [id number]) OT Summary Assessment and Plan Potential Rehabilitation Potential Good Analytic Complexity at Evaluation Low Summary OT Impairments Balance,Functional Mobility, Dressing,Toileting,Bathing, Toilet Transfers,Shower Transfers,Activity Tolerance Progress Towards Goals Progressing Toward Goals Assessment Summary Pt low complexity and here due to overdose due to depression /suicidal ideation. Pt declined ADLs at this time stating that she had already performed morning ADLs and just returned from the bathroom. Pt was agreeable to perform the SLUMS and scored 29/30. A copy of the SLUMS was provided to care management for placement reasons. Goals Self-Feeding Goal Independent Grooming Goal Independent Dressing Goal Independent Toileting Goal Independent Bathing Goal Independent Toilet Transfer Goal Independent Shower Transfer Goal Independent OT-Other Goals Pt to be able to incorporate stress management techniques during daily needs. Days to Meet Goals 5 Frequency of Treatment Frequency Of Treatment Once a Day Treatment Plan OT Treatment Plan ADL Training,Functional Cognition Training,Functional Mobility,Patient/Family Education,Discharge Planning Other Treatment Recommendations and Next stress management Treatment Focus Discharge Recommendations OT Discharge Recommendations Home with Assistance Other Discharge Recommendations Inpatient pyschiatric care Transportation Needs at Discharge Private Vehicle
--- NOTE | 2020-06-24 13:11 | PC.NURSE ---
This MANAGER SHOP is doing 1:1 observation. Patient has been calm and quiet this shift. Worked with pt and ot and has been at her side for most of the morning comforting her. She is anxious about waiting for placement at another facility so we have walked the acute care floor twice to help waste some time. Pt is walking well in the hallways and moving around independently in room with her at her side.
[2020-06-24 15:49] VITALS: BP 154/88; PULSE 87; RESP 18; TEMP 36.1; O2SAT 98
--- NOTE | 2020-06-24 16:22 | PM.PN.1 ---
Subjective Subjective Date Patient Seen: 06/24/20 Time Patient Seen: 16:22 Interval history: Patient is 70-year-old female with history of depression and anxiety admitted after intentional overdose of lorazepam and trazodone. Patient was set up to transfer to [facility] in [place], [place]. However given concerns over possible dementia given her cognitive testing initially as well as that [facility] is a more acute facility they did not believe that the patient would be a good fit and did not accept the patient. Today, the patient remains quite anxious. She denies chest pain, palpitations, nausea, vomiting. She relates a lot of her anxiety over fear of going to the dentist. She had a delayed response when asked if she felt like she would be safe at home, and did state that she wouldn't necessarily hesitate to take medications if she continued to feel anxious or was unable to sleep. Exam Vital Signs (past 8 hours): - 06/24/20 11:45 06/24/20 15:49 Temperature 97.6 F 96.9 F L Pulse Rate 85 87 Respiratory Rate 16 18 Blood Pressure 142/86 H 154/88 H Pulse Oximetry 98 98 Oxygen Delivery Method Room Air Oxygen Flow Rate 0 Narrative Exam Narrative: General: Alert female in no acute distress Lungs: Breathing nonlabored, clear to auscultation Heart: Regular rhythm Extremities: No edema Psychiatric: mildly anxious, occasionally tearful. delayed response and vague response to questions of suicidality. Objective Labs Result Diagrams: 06/20/20 07:17 06/21/20 04:30 Labs: Laboratory Results - last 24 hr 06/23/20 17:05 SARS-CoV-2 (PCR) Negative [facility] Medical History (Updated 06/20/20 @ 17:50 by Yue Dillon MD) Depression Family History (Updated 06/20/20 @ 17:50 by Yue Dillon MD) Other Family history unobtainable Social History household members: spouse Smoking Status: Former smoker alcohol intake: never Assessment & Plan Assessment & Plan narrative: Patient is 70-year-old female with history of depression admitted to the hospital following intentional polysubstance overdose. 1. Major depression, severe -admitted with intentional overdose in suicide attempt written note left for -patient was initially quite somnolent but has been fully awake since yesterday. -balance and strength improved. Cognitive testing initially with SLUMS of 21/30, now improved to 29/30 and was likely due to medication overdose. -initially planned to discharge to inpatient psychiatry, however no available placement at this time and patient was not a good fit according to psychiatrist at [facility] given possible dementia according to his assessment (cog testing and CT imaging) as well as her level of acuity does not appear to be of benefit for that facility (typically their facility is very high acuity psychiatric issues). -Dr. Andersen of psychiatry consulted, agrees to evaluate tomorrow for possible medication recommendations upon discharge and outpatient recommendations as well. -will start low dose 0.5 mg of ativan PO TID as needed for severe anxiety in this controlled setting. 2. Acute hyponatremia, resolved Dispo: Likely discharge home, potentially tomorrow depending on psychiatry recommendations Quality VTE Deep Vein Thrombosis/Pulmonary Embolism Present on Admission: No
--- NOTE | 2020-06-24 16:30 | PC.NURSE ---
precision layout worker speaking with and patient about placement
[2020-06-24] MEDS: LORazepam 0.5 MG TABLET PO (16:46)
--- NOTE | 2020-06-24 18:15 | PC.NURSE ---
patient is going to sleep.
[2020-06-24 19:50] VITALS: BP 154/90; PULSE 87; RESP 16; TEMP 36.6; O2SAT 97
--- NOTE | 2020-06-24 21:30 | PC.NURSE ---
Patient appears to be visibly upset. RN speaking to patient about meds for sleep.
[2020-06-24 22:41] VITALS: BP 153/90; RESP 18; TEMP 36.3; O2SAT 97
[2020-06-25] MEDS: LORazepam 0.5 MG TABLET PO ×2 (00:20→09:14)
[2020-06-25] MEDS: MELATONIN 3 MG TABLET 6 MG PO (00:31)
[2020-06-25 00:32] VITALS: BP 168/81; PULSE 85; RESP 18; TEMP 36.6; O2SAT 93
--- NOTE | 2020-06-25 01:45 | PC.NURSE ---
Addendum entered by Luz Elena Elias R.N. 06/25/20 05:56: Pt slept for long periods after Ativan and Melatonin. Using call light to request bed alarm be deactivated to ambulate to bathroom. Patient seems less anxious and able to return to sleep on return to bed. Original Note: Patient requesting Ativan and melatonin. Alert and oriented x3. Encouraged to C,DB. Patient ambulated independently to bathroom. Patient is steady on feet. Returned to bed and medication given per request. Patient remains with one to one observation due to admission with overdose.
[2020-06-25 04:30] VITALS: BP 129/77
[2020-06-25 07:15] VITALS: BP 128/70; RESP 18; TEMP 37.1; O2SAT 92
--- NOTE | 2020-06-25 08:39 | CM.DPC ---
DCP/continued: Reviewed chart. MANGLE ROLL OPERATOR attempted inpatient geriatric placement on 06-24-20 with no luck. It was anticipated that patient would go to [facility] however, they declined in the late afternoon. Facility reports that they cannot accommodate? Dr. Rivers saw patient this afternoon and reports that he will be ordering psychiatric evaluation. Patient continues to be anxious and reports that she is currently scared to go home. MANGLE ROLL OPERATOR met with patient and spouse on 06-24-20 late afternoon. MANGLE ROLL OPERATOR explained role and provided update on d/c plan. Patient and spouse aware that safety planning may be appropriate if no inpatient bed found. Dr. Rivers ordered medication for patient's anxiety as requested. Patient reports that she just wants to sleep. Per nursing notes from last evening patient did sleep. MANGLE ROLL OPERATOR placed call to facilities this AM for potential placement. [facility] has no beds due to COVID exposure, [facility] declined, [facility] no beds. Lastly, [facility] currently with no beds but requested MANGLE ROLL OPERATOR check back after 11:00AM. Patient currently awaiting psychiatric evaluation. Anticipate home with supportive spouse if no inpatient bed available. Patient will need outpatient follow up and medication upon d/c. P: Pending. HU Beaver
--- NOTE | 2020-06-25 10:23 | P.CONS_ITS ---
History of Present Illness Consult details Date Patient Seen: 06/25/20 Time Patient Seen: 09:30 Chief complaint: Altered Mental status Reason for consult: SI and benzodiazepine overdose in the context of severe anxiety. Requesting provider: Farrukh Rivers Narrative: REFERRAL INFORMATION This is the first psychiatric evaluation for this 70 year female referred by Dr. Rivers for evaluation of severe anxiety and suicidal ideation in the context of recent benzodiazepine overdose. RECORDS REVIEW The patient?s referral documents, medical records and intake questionnaire were reviewed as part of this evaluation. CHIEF COMPLAINT ?I just got so I could not take it anymore.? HISTORY OF PRESENT ILLNESS The patient reports a very long, lifelong, history of severe generalized anxiety that dates back to childhood. She has been able to cope fairly well in life until about the last 10 or 15 years when she began to develop a fairly severe dental phobia. There was a period of time recently where she did not go to see a dentist for over 8 years. She finally decided that she need overcome her fear and go to a dentist when she had difficulty with some tooth pain in on evaluation it was found that a root canal needed to be done. She was able to get through it but then, had difficulty when they were attempting to do the crown preparations. She told the dentist that she would reschedule that appointment but then never returned. As her teeth situation began to get worse she decided she needed to go back in and made an appointment but soon had a panic attack after walking into the clinic. She sought help from her primary care physician who gave her Xanax for about a month which seemed to help. In April of 2020 the patient once again had difficulty with the dental issue, could not bring herself to call the dentist and has essentially been in a prolonged severe generalized anxiety and panic state since May of this year. On the day prior to admission, she was in a severely anxious state, decided that she could no longer take it, and impulsive took an overdose of all of her medications. She wrote a note to her who had gone to bed before her and he found it the next morning, brought her to the emergency department where she was admitted. Today, the patient denies any suicidal ideation, intent, or plan, but does report continuing ongoing anxiety. During the course of her treatment with her primary care provider she was tried on Lexapro, sertraline, bupropion, hydroxyzine, lorazepam, alprazolam, and trazodone. She had variable response to some of these medications and also reports having difficulty sleeping at times or experiencing some side effects. She also reports becoming anxious when given a dose range and knowing that the amount of medication she currently has on hand is likely to run out before the next prescription is due. * Panic attacks: Reports episodes of intense fear, shortness of breath, muscle tension, heart racing however, these episodes are fairly rare. * Generalized Anxiety: The patient mostly complains of generalized anxiety with extreme worry to the point of functional difficulty over anything and everything. * Phobias: Dental phobia as described above * Mood: Although anxiety is the primary racecar driver, patient also reports some moderate level of sad, down, and depressed mood * Activity/anhedonia: She is able to enjoy some activities, but finds others are overwhelmed by her anxiety. * Appetite/weight change: No change in weight or appetite * Sleep: Patient notes difficulty with initial insomnia and sometimes middle insomnia. * Motor: Denies any psychomotor slowing * Energy: Denies any decreased energy or fatigue * Emotions: Reports some negative emotions and feelings of low self-esteem * Concentration: poor concentration. * Suicidal ideation/Safety: Nihilistic thinking and thoughts of , but no overt suicidal or homicidal ideation, intent or plan. Patient denies any symptoms of psychosis, rik, PTSD, or current suicidal or homicidal ideation, intent, or plan. PAST PSYCHIATRIC HISTORY - Diagnoses: No prior psychiatric diagnoses - Inpatient: None. - Outpatient: None. - Suicide Attempts: Only suicide attempt was the 1 that resulted in her admission PREVIOUS PSYCHIATRIC MEDICATION TRIALS Lexapro-severe shaking Sertraline-took 25 and titrated up to 100 mg, no apparent affect Bupropion-?felt weird? could not tolerate this Alprazolam-effective but required ever increasing doses Lorazepam-effective but required regular dosing Hydroxyzine-not effective at low dose but seemed to have a calming response at 50 mg Trazodone-ineffective at lower doses but able to sleep at 100 mg CURRENT PSYCHOTROPIC MEDICATIONS Off all meds for last 3 days Meds Home Medications and Allergies Home Medications Medication Instructions Recorded Confirmed Type hydroxyzine HCl 50 mg PO QID PRN 30 Days #45 tab 06/25/20 Rx trazodone 150 mg PO BEDTIME 30 Days #30 tab 06/25/20 Rx Allergies Allergy/AdvReac Type Severity Reaction Status Date / Time Penicillins Allergy Rash Verified 06/20/20 07:17 Review of Systems Review of Systems ROS: Yes All systems reviewed with the patient and are negative except as otherwise documented Exam Vital Signs (past 8 hours): - 06/25/20 04:30 06/25/20 07:15 Temperature 98.8 F Respiratory Rate 18 Blood Pressure 129/77 128/70 Pulse Oximetry 92 Oxygen Delivery Method Room Air Oxygen Flow Rate 0 Narrative Exam Narrative: MENTAL STATUS EXAM * Appearance: The patient is a slender well-developed and well-nourished female seen sitting upright in the chair in her hospital room. She appears her stated age. Took notes in a stenographers notebook throughout the course of the interview. * Grooming: Neatly dressed and adequately groomed in hospital pj's but hair combed. * Behavior: Calm and cooperative with the evaluation * Gait: Not observed * Speech: Normal rate, volume, and juan francisco * Mood: ?I am just frustrated with all this.? * Affect: Somewhat mild to moderately dysphoric and anxious, appears excessively concerned about various details. Congruent with content, normal r bon and reactivity * Thought Process: Linear, logical, and goal-directed * Thought Content: Denies suicidal ideation, denies homicidal ideation, intent or plan; and thee was no evidence of a formal thought or perceptual disturbance. * Attention: Attentive to interview * Orientation: Oriented to person, place, time, and circumstance * Memory: Intact for interview, not formally tested * Insight: Fair * Judgment: Fair Objective Labs Result Diagrams: 06/20/20 07:17 06/21/20 04:30 Assessment & Plan Assessment and plan (1) Generalized anxiety disorder with panic attacks: Status: Acute (2) Suicide attempt: Status: Acute (3) Intentional overdose of drug in tablet form: Status: Acute Assessment & Plan narrative: RECOMMENDATIONS/ASSESSMENT/MEDICAL DECISION MAKING Zaida Jones is a 70-year-old woman with a very long history of generalized a nxiety disorder that severely worsened in the context of a dental phobia and the need for significant levels of dental care recently. Her anxiety peaked severely resulting in an impulsive overdose of her medications. The patient strongly desires appropriate psychiatric treatment and is motivated for therapy. We discussed a treatment plan of trazodone 100-150 mg for sleep and hydroxyzine during the day to control anxiety. We also discussed avoiding benzodiazepines this time as they do not appear to be fairly productive for her. >>>>>Will have the patient follow up with me in my clinic and have revised an appointment for next week.<<<<<< SAFETY ASSESSMENT: Risk factors: Severe anxiety Protective factors: Good support from and family Warning signs: Recent suicide attempt impulsive the overdose Overall risk assessment: Based on the presence of no current suicidal desire; no current suicidal intent; some suicidal capability; and multiple buffers against suicide including patient's remorse over her recent impulsive actions; overall level of risk is judged to be moderate to low at this time. COORDINATION OF CARE * Will coordinate with PCP as appropriate. * Consults: None at this time. DIAGNOSTIC INTERVENTIONS * Imaging: None at this time. * Labs: None at this time * Psych testing: None at this time. MEDICATIONS * Start hydroxyzine 50 mg p.o. q.i.d. * Start trazodone 100-150 mg p.o. q.h.s. for sleep * >>AUDITOR TAX report checked prior to today?s visit shows no unusual activity. PSYCHOTHERAPY * We will continue to incorporate psychodynamic, cognitive behavioral, and supportive techniques into our sessions. LIFESTYLE INTERVENTIONS * Discussed good nutrition * Discussed need for exercise daily, walking recommended * Discussed comprehensive practice of good sleep hygiene FOLLOW UP * Return to clinic in 1 week. * Call the clinic during business hours with questions. * Call 911 or crisis line in case of emergent safety concern or other crisis
--- NOTE | 2020-06-25 10:24 | P.DS_ITS ---
History of Present Illness History of Present Illness Date Patient Seen: 06/25/20 Time Patient Seen: 10:24 Chief complaint: Altered Mental status Narrative: Per Dr. Malagon, The patient is a 70-year-old female with a history of depression. Patient took an overdose last evening. Around 03 11 she took 50 mg tablets of trazodone. Patient left a note. She was found by her somnolent and minimally responsive. Patient was brought into the emergency department for evaluation. She was found to have a sodium of 128. Head CT was obtained. Poison control was contacted and recommended observation and monitoring her QT interval. The patient has been in the emergency department for 10 hours. She continues to be very somnolent and unarousable. The patient initially was able to answer questions. She stated she was at [facility] because she took an overdose last evening. She quickly fell back to sleep. She gets a she had a mild headache, no shortness of breath, and no dysuria. Otherwise the patient was sleepy again and minimally arousable. She is admitted to the hospital for detoxification following an overdose of multiple substances. Discharge Providers Provider Date of admission: 06/20/20 16:55 Discharge Date: 06/25/20 Consults: 06/20/20 07:36 Consult to SUBSTANCE ADDICTION COORDINATOR - Disaster Recovery Consultant Stat Comment: SUBSTANCE ADDICTION COORDINATOR Consult: Behavioral Health Assess 06/21/20 16:25 Consult to Physical Therapy Evaluate & Treat Comment: Physician Instructions: Evaluate and Treat 06/22/20 10:24 Consult to Occupational Therapy Evaluate & Treat Comment: Physician Instructions: Evaluate and treat Discharge provider: Farrukh Rivers DO Summary Hospital Course Hospital Course: Patient is 70-year-old female with history of depression admitted to the hospital following intentional polysubstance overdose. Initially attempted voluntary admission to inpatient psychiatry unit, however she was not accepted to one and there are no geriatric psychiatry beds available. She was seen by psychiatry, and have a plan for reasonably safe discharge home at this time with planned psychiatry follow up next week. 1. Major depression, severe, present on admission. -admitted with intentional overdose in suicide attempt written note left for , presumed to have trazodone and benzodiazepines based on medication history. -patient was initially quite somnolent but has been fully awake since day after admission. -balance and strength improved. Cognitive testing initially with SLUMS of , now improved to 29/30 and was likely due to medication overdose. -initially planned to discharge to inpatient psychiatry voluntarily, however no available placement at this time and patient was not a good fit according to psychiatrist at [facility] given possible dementia according to his assessment (initial cog testing and CT imaging showing age related volume loss) as well as her level of acuity does not appear to be of benefit for that facility (typically their facility is very high acuity psychiatric issues). -Dr. Bolton of psychiatry consulted, appreciate his time and assistance with management. Given patient had not had significant withdrawal symptoms without her usual buproprion and sertraline, these should be held on discharge. He recommended hydroxyzine 50 mg QID as needed for anxiety and trazodone 150 mg at night for sleep. She will have outpatient psychiatry visit next week, 07/02/20, at 10 am. 2. Acute possibly on chronic hyponatremia, acute portion resolved - likely due to mild dehydration on admission. Improved with fluids from 128 to 131. Previous lab values 1 week prior showed a Na of 131. Patient did not show any evidence of symptoms from hyponatremia given that her presentation was more consistent with acute intoxication. Exam Vital Signs (past 8 hours): - 06/25/20 04:30 06/25/20 07:15 Temperature 98.8 F Respiratory Rate 18 Blood Pressure 129/77 128/70 Pulse Oximetry 92 Oxygen Delivery Method Room Air Oxygen Flow Rate 0 Narrative Exam Narrative: General: Alert female in no acute distress, sitting upright in hospital bed Lungs: Breathing nonlabored, clear to auscultation Heart: Regular rhythm Extremities: No edema Psychiatric: calm, cooperative, slightly flat. Objective Labs Result Diagrams: 06/20/20 07:17 06/21/20 04:30 [facility] Medical History (Updated 06/25/20 @ 10:24 by Chuckie Bolton MD) Depression Family History (Updated 06/20/20 @ 17:50 by Yue Dillon MD) Other Family history unobtainable Social History household members: spouse Smoking Status: Former smoker alcohol intake: never Discharge Plan Discharge Plan Patient Disposition: Home Provider Discharge Comment: You were admitted to the hospital after an overdose of medications. You improved over time. You should continue on hydroxyzine 50 mg q6 hours for anxiety and trazodone 150 mg at night for sleep. You have a follow up with Dr. bolton of psychiatry on 07/02 (next wednesday) at [address] Bolton recommended you stop sertraline and buproprion since these were not given here and you did not show evidence of withdrawal. Discharge orders & Medications Prescriptions: New hydroxyzine HCl 50 mg tablet 50 mg PO QID PRN (Reason: anxi) 30 Days Qty: 45 RF: 0 trazodone 150 mg tablet 150 mg PO BEDTIME 30 Days Qty: 30 RF: 0 Discontinued trazodone 50 mg Tablet 50 mg PO BEDTIME PRN (Reason: Insomnia) RF: 0 sertraline 100 mg Tablet 100 mg PO DAILY RF: 0 lorazepam 1 mg Tablet 1 mg PO BEDTIME PRN (Reason: Insomnia) RF: 0 bupropion HCl 150 mg Tablet Extended Release 24 Hr 150 mg PO DAILY RF: 0 Follow up/Referrals: Chuckie Bolton MD [Physician] - 07/02/20 10:00 am Simran Reyes MD [Physician] - Discharge Health Status Multidrug resistant organism: No MDRO Diet/Activity/Treatments Diet: Regular Visit Report/Discharge Packet Instructions: Hydroxyzine, How to Create a Suicide Prevention Safety Plan Quality VTE Deep Vein Thrombosis/Pulmonary Embolism Present on Admission: No
--- NOTE | 2020-06-25 11:19 | PC.NURSE ---
Addendum entered by Christiano Vora R.N. 06/25/20 12:29: Pt ambulated independently with steady gait to exit accompanied by spouse and SUPERVISOR COATING. All belongings with pt/spouse upon d/c. Left at 1221 Original Note: Pt/spouse given dc packet and verbal/written education. Educated to dx, meds, new meds (side effects, dose, route, time, erx to [facility]), instructed to discontinue medications per hospitalist/psych recs. Instructed pt to keep scheduled f/u appt with Dr. Andersen and directed both pt/spouse to printed appt time and phone number. Reviewed education regarding suicide. Pt and spouse requested resources about numbers to call in the event of emergency/crisis. Spoke with MEDICAL RECEPTION SPECIALIST who brought resources to bedside. Both pt and spouse verbalize understanding of teaching. Pt is without IV access. She is dressed and ready to go after MEDICAL RECEPTION SPECIALIST finishes meeting with pt/spouse at bedside.
--- NOTE | 2020-06-25 12:13 | OT.IPNOTE ---
Pt getting ready to go home. Pt aware that she may need a shower chair at home. NO charge.
--- NOTE | 2020-06-25 12:59 | CM.DPC ---
DCP/continued: Reviewed chart. Patient seen by Dr. Andersen this AM. It was determined that patient okay to d/c home with new medications for anxiety and outpatient f/u. Dr. Andersen reports that he can follow patient as outpatient. Appointment scheduled for 1 week. CRACKER AND COOKIE MACHINE OPERATOR spoke with Dr. Rivers and he is in agreement to d/c today. Met with patient and spouse at bedside. Patient reports that her anxiety is somewhat improved. Patient denies suicidal or homicidal ideation. Patient and spouse in agreement with plan to d/c home today with close follow up. Provided patient with resources for mental health crisis and senior resource guide. Patient and spouse appreciative. P: Home today. [facility]
== END 2020-06-25 12:21 | disposition home or self-care (01) | DRG 918 ==
LOC: ED 16:55 → AC 16:55 → ICU 19:11
PROVIDERS: Internal Medicine; Nurse Practitioner Adult Health; Admitting Provider Internal Medicine; Emergency Provider Emergency Medicine; Referring Provider Emergency Medicine; Visit Provider Internal Medicine
DX: T43.212A Poisoning by selective serotonin and norepinephrine reuptake inhibitors, intentional self-harm, initial encounter (principal); E87.1 Hypo-osmolality and hyponatremia; F32.2 Major depressive disorder, single episode, severe without psychotic features; T42.4X2A Poisoning by benzodiazepines, intentional self-harm, initial encounter; R40.0 Somnolence; Z20.822 Contact with and (suspected) exposure to COVID-19; F41.1 Generalized anxiety disorder
CPT/HCPCS: 36415; 70450; 80048; 80053; 80076; 80305; 80320; 80329; 81003; 83605; 83735; 83930; 85025; 87635; 87797; 90792; 93005; 96360; 96361; 97116; 97129; 97161; 97165; 97530; 99284; C9803; G0480

== ENCOUNTER 2020-07-09 09:11 | Emergency (ER) | payer MEDICARE, SELFPAY ==
[2020-06-20 17:26] VITALS: BMI 17.2
[2020-07-09] VITALS (47 sets, daily range): BP systolic 106–139; BP diastolic 59–78; PULSE 57–94; RESP 13–43; TEMP 36.8; O2SAT 91–100
--- NOTE | 2020-07-09 09:15 | DI.RAD.S_ITS ---
PROCEDURE: XR CHEST 1V INDICATIONS: overdose TECHNIQUE: One view of the chest was acquired. COMPARISON: None. FINDINGS: Surgical changes and devices: None. Lungs and pleura: Lungs are clear. No pleural effusions or pneumothorax. Mediastinum: Mediastinal contours appear normal. Heart size is normal. Bones and chest wall: No suspicious bony lesions. Overlying soft tissues appear unremarkable. IMPRESSION: No acute process. Dictated by: Donta Blanco M.D. on 07/09/2020 at 9:45 Approved by: Donta Blanco M.D. on 07/09/2020 at 9:46
--- NOTE | 2020-07-09 09:16 | ED_ITS ---
HPI - Psych <Isadora Quinn DO - Last Filed: 07/10/20 19:23> General Chief Complaint: Psychiatric Symptoms Stated Complaint: Suicide attempt Time Seen by Provider: 07/09/20 09:14 Source: patient Mode of arrival: Ambulatory Limitations: no limitations History of Present Illness HPI Narrative: Patient is a 70-year-old female who presents after suicide attempt. She apparently has had multiple visits with the dentist for a root canal causing her severe anxiety. She was prescribed Xanax. She started having dental pain again she did not want to deal with the dentist or go to the dentist again she has suffered from depression and anxiety previously. She and her decided to share a bottle of 0.5 mg of Xanax each taking around 14-16 tablets and going into the car in the garage and turning the car on. This was at midnight last night. The patient woke up however her did not at which point she called 911. She denies any symptoms no headache nausea vomiting chest pain or shortness of breath. All her carbon monoxide finger probe it shows 2%. She is immediately placed on 100% oxygen. She was seen and evaluated here earlier this month for suicide attempt is of taking approximately 30 pills of trazodone and lorazepam Related Data Previous Rx's Medication Instructions Recorded hydroxyzine HCl 50 mg tablet 50 mg PO QID PRN 30 Days #120 tab 07/02/20 trazodone 150 mg tablet 150 mg PO BEDTIME 30 Days #30 tab 07/02/20 venlafaxine 37.5 mg 37.5 mg PO DAILY #30 cap 07/02/20 capsule,extended release 24 hr Allergies Allergy/AdvReac Type Severity Reaction Status Date / Time Penicillins Allergy Rash Verified 07/10/20 08:23 Review of Systems <Isadora Quinn DO - Last Filed: 07/10/20 19:23> Review of Systems ROS Unobtainable: All systems reviewed & are unremarkable except as noted in HPI and below Constitutional Constitutional: Denies chills, Denies fever(s), Denies headache(s), Denies lethargy and Denies weakness Eyes Eyes: Denies blurry vision, Denies exophthalmos, Denies eye discharge and Denies dry eyes ENT Ears, Nose, Mouth, and Throat: Denies vertigo, Denies dizziness and Denies headache(s) Cardiovascular Cardiovascular: Denies chest pain, Denies irregular heart rhythm, Denies ligh theadedness, Denies palpitations, Denies dyspnea, Denies dyspnea on exertion and Denies orthopnea Respiratory Respiratory: Denies cough, Denies dyspnea, Denies dyspnea on exertion and Denies wheezing Gastrointestinal Gastrointestinal: Denies abdominal pain, Denies change in bowel habits, Denies diarrhea, Denies nausea and Denies vomiting Genitourinary Genitourinary: Denies hematuria and Denies dysuria Genitourinary: Denies hematuria and Denies dysuria Musculoskeletal Musculoskeletal: Denies back pain and Denies myalgias Integumentary/Breasts Skin/Breast: Denies pruritus, Denies erythema, Denies rash and Denies wounds Neurologic Neurologic: Denies vertigo, Denies dizziness, Denies headache(s) and Denies weakness Psychiatric Psychiatric: Reports as per HPI Endocrine Endocrine: Denies palpitations Allergic/Immunologic Allergic/Immunologic: Denies wheezing Patient History <Isadora Quinn DO - Last Filed: 07/10/20 19:23> Medical History (Updated 07/10/20 @ 13:54 by Isadora Quinn DO) Depression Family History Other Family history unobtainable Social History (System 07/10/20 @ 08:23 by Lady Nydia Hazel) household members: spouse Smoking Status: Former smoker alcohol intake: never Smoking Status: Former smoker Substance Use Type: does not use Exam <Isadora Quinn DO - Last Filed: 07/10/20 19:23> Initial Vital Signs Initial Vital Signs: Vital Signs Temperature 98.2 F 07/09/20 09:23 Pulse Rate 69 07/09/20 09:23 Respiratory Rate 23 07/09/20 09:23 Blood Pressure 114/71 07/09/20 09:23 Pulse Oximetry 100 07/09/20 09:23 GENERAL: Awake alert 70-year-old female and in no acute distress. HEENT: Head atraumatic,EOMI, pupils reactive, face symmetric, moist mucous membranes CARDIOVASCULAR: Regular rate and rhythm without murmurs, rubs or gallops. RESPIRATORY: Breath sounds equal bilaterally, no wheezes rales or rhonchi. ABDOMEN: Soft, nontender. Normoactive bowel sounds all 4 quadrants. No guarding or rebound. EXTREMITIES: Normal range of motion, no clubbing or edema. Neurovascularly intact NEUROLOGICAL: Alert and oriented x4.Normal gait and speech. Investigations Chief strength equal bilaterally no slurring of speech SKIN: Warm, dry, no laceration, no petechiae, no rashes or lesions. <Antonio Bunch DO - Last Filed: 07/11/20 03:41> Initial Vital Signs Initial Vital Signs: Vital Signs Temperature 98.2 F 07/09/20 09:23 Pulse Rate 69 07/09/20 09:23 Respiratory Rate 23 07/09/20 09:23 Blood Pressure 114/71 07/09/20 09:23 Pulse Oximetry 100 07/09/20 09:23 Course <Isadora Quinn DO - Last Filed: 07/10/20 19:23> Orders Ordered: Discontinued Medications Hydroxyzine Pamoate (Hydroxyzine Pamoate 25 Mg Capsule) 25 mg PO NOW ONE Stop: 07/10/20 10:55 Last Admin: 07/10/20 11:02 Dose: 25 mg Documented by: BTONER Sodium Chloride (Normal Saline 0.9%) 1,000 mls @ 150 mls/hr IV CONT TI Last Infusion: 07/09/20 12:19 Dose: 0 mls/hr Documented by: Admin: 07/09/20 10:10 Dose: 150 mls/hr Documented by: OTILIO Vital Signs Vital signs: Vital Signs - 8 hr 07/10/20 12:02 Pulse Rate 80 Respiratory Rate 18 Blood Pressure 167/85 H Pulse Oximetry 100 <Antonio Bunch DO - Last Filed: 07/11/20 03:41> Course Course Narrative: Patient received in sign-out from Dr. Quinn. Patient continues to rest comfortably without complaint. Awaiting placement Orders Ordered: Discontinued Medications Hydroxyzine Pamoate (Hydroxyzine Pamoate 25 Mg Capsule) 25 mg PO NOW ONE Stop: 07/10/20 10:55 Last Admin: 07/10/20 11:02 Dose: 25 mg Documented by: BTONER Sodium Chloride (Normal Saline 0.9%) 1,000 mls @ 150 mls/hr IV CONT TI Last Infusion: 07/09/20 12:19 Dose: 0 mls/hr Documented by: Admin: 07/09/20 10:10 Dose: 150 mls/hr Documented by: OTILIO Vital Signs Vital signs: Vital Signs - 8 hr 07/10/20 12:02 Pulse Rate 80 Respiratory Rate 18 Blood Pressure 167/85 H Pulse Oximetry 100 MDM - Psych <Isadora Quinn - Last Filed: 07/10/20 19:23> Lab Data Attestation: I reviewed the patient's lab results. Result diagrams: 07/09/20 09:44 07/09/20 09:44 Labs: Lab Results 07/09/20 07/09/20 07/09/20 Range/Units 09:44 09:44 09:44 WBC 7.6 (4.5-11.0) X10^3/uL RBC 4.40 (4.0-5.2) X10^6/uL Hgb 13.3 (12.0-16.0) g/dL Hct 39.5 (36-46) % MCV 89.6 (80-100) fL MCH 30.1 (26-34) PG MCHC 33.6 (30-36) % RDW 13.9 (11.6-14.8) % Plt Count 392 (150-400) X10^3/uL Neut % (Auto) 77.5 H (50-75) % Lymph % (Auto) 13.7 L (25-40) % Bennett % (Auto) 7.7 (3-14) % Eos % (Auto) 0.3 L (2-4) % Baso % (Auto) 0.8 (0-2) % Neut # (Auto) 5900 (8009-8391) /uL Lymph # (Auto) 1000 L (3533-6594) /uL Bennett # (Auto) 600 (0-900) /uL Eos # (Auto) 0 (0-450) /uL Baso # (Auto) 100 (0-100) /uL Sodium 133 L (137-145) mmol/L Potassium 4.1 (3.4-5.1) mmol/L Chloride 102 (98-107) mmol/L Carbon Dioxide 23 (22-32) mmol/L BUN 17 (7-17) mg/dL Creatinine 0.87 (0.52-1.04) mg/dL Estimated GFR > 60.0 (>60) mL/min BUN/Creatinine Ratio 19.5 (6-22) Glucose 102 (80-110) mg/dL Lactate (0.7-2.1) mmol/L Calcium 9.8 (8.4-10.2) mg/dL Magnesium (1.6-2.3) mg/dL Total Bilirubin 0.4 (0.2-1.3) mg/dL AST 34 (14-36) IU/L ALT 37 H (<35) IU/L Alkaline Phosphatase 89 (38-126) U/L Total Creatine Kinase 39 (30-135) U/L CK-MB (CK-2) TNP CK-MB (CK-2) Rel Index TNP Troponin I < 0.012 (0.01-0.034) ng/mL Total Protein 6.9 (6.3-8.2) g/dL Albumin 4.3 (3.5-5.0) g/dL Globulin 2.6 (1.7-4.1) g/dL Albumin/Globulin Ratio 1.7 (1.0-2.8) TSH (0.47-4.68) uIU/mL Urine Color Urine Appearance Urine pH (4.5-8.0) Ur Specific [place] (1.000-1.035) Urine Protein (Negative) Urine Glucose (UA) (Negative) g/dL Urine Ketones (NEGATIVE) Urine Occult Blood (Negative) Urine Nitrate (Negative) Urine Bilirubin (NEGATIVE) Urine Urobilinogen (0.2) E.U./dL Ur Leukocyte Esterase (NEGATIVE) Urine RBC (0-5/HPF) Urine WBC (0-5/HPF) Ur Squamous Epith Cells (0-5/HPF) Amorphous Sediment Urine Bacteria (None) Hyaline Casts (None) Urine Mucus (Negative) Ur Culture Indicated? Salicylates < 1.0 (<20) mg/dL U Opiates 300ng/mL cut (Negative) Ur Oxycodone Screen (Negative) Urine Methadone Screen (Negative) Acetaminophen < 10 L (10-30) ug/mL Ur Barbiturates Screen (Negative) U Tricyclic Antidepress (Negative) Ur Phencyclidine Scrn (Negative) Ur Amphetamines Screen (Negative) U Methamphetamines Scrn (Negative) Ur MDMA Scrn (Ecstasy) (Negative) U Benzodiazepines Scrn (Negative) Urine Cocaine Screen (Negative) U Marijuana (THC) Screen (Negative) Ethyl Alcohol < 10 ( - 10) mg/dL SARS-CoV-2 (PCR) (Negative) 07/09/20 07/09/20 07/09/20 Range/Units 09:44 09:44 09:44 WBC (4.5-11.0) X10^3/uL RBC (4.0-5.2) X10^6/uL Hgb (12.0-16.0) g/dL Hct (36-46) % MCV (80-100) fL MCH (26-34) PG MCHC (30-36) % RDW (11.6-14.8) % Plt Count (150-400) X10^3/uL Neut % (Auto) (50-75) % Lymph % (Auto) (25-40) % Bennett % (Auto) (3-14) % Eos % (Auto) (2-4) % Baso % (Auto) (0-2) % Neut # (Auto) (5340-8582) /uL Lymph # (Auto) (6659-1339) /uL Bennett # (Auto) (0-900) /uL Eos # (Auto) (0-450) /uL Baso # (Auto) (0-100) /uL Sodium (137-145) mmol/L Potassium (3.4-5.1) mmol/L Chloride (98-107) mmol/L Carbon Dioxide (22-32) mmol/L BUN (7-17) mg/dL Creatinine (0.52-1.04) mg/dL Estimated GFR (>60) mL/min BUN/Creatinine Ratio (6-22) Glucose (80-110) mg/dL Lactate (0.7-2.1) mmol/L Calcium (8.4-10.2) mg/dL Magnesium 1.9 (1.6-2.3) mg/dL Total Bilirubin (0.2-1.3) mg/dL AST (14-36) IU/L ALT (<35) IU/L Alkaline Phosphatase (38-126) U/L Total Creatine Kinase (30-135) U/L CK-MB (CK-2) CK-MB (CK-2) Rel Index Troponin I (0.01-0.034) ng/mL Total Protein (6.3-8.2) g/dL Albumin (3.5-5.0) g/dL Globulin (1.7-4.1) g/dL Albumin/Globulin Ratio (1.0-2.8) TSH 2.50 (0.47-4.68) uIU/mL Urine Color Urine Appearance Urine pH (4.5-8.0) Ur Specific [place] (1.000-1.035) Urine Protein (Negative) Urine Glucose (UA) (Negative) g/dL Urine Ketones (NEGATIVE) Urine Occult Blood (Negative) Urine Nitrate (Negative) Urine Bilirubin (NEGATIVE) Urine Urobilinogen (0.2) E.U./dL Ur Leukocyte Esterase (NEGATIVE) Urine RBC (0-5/HPF) Urine WBC (0-5/HPF) Ur Squamous Epith Cells (0-5/HPF) Amorphous Sediment Urine Bacteria (None) Hyaline Casts (None) Urine Mucus (Negative) Ur Culture Indicated? Salicylates (<20) mg/dL U Opiates 300ng/mL cut (Negative) Ur Oxycodone Screen (Negative) Urine Methadone Screen (Negative) Acetaminophen (10-30) ug/mL Ur Barbiturates Screen (Negative) U Tricyclic Antidepress (Negative) Ur Phencyclidine Scrn (Negative) Ur Amphetamines Screen (Negative) U Methamphetamines Scrn (Negative) Ur MDMA Scrn (Ecstasy) (Negative) U Benzodiazepines Scrn (Negative) Urine Cocaine Screen (Negative) U Marijuana (THC) Screen (Negative) Ethyl Alcohol ( - 10) mg/dL SARS-CoV-2 (PCR) Negative (Negative) 07/09/20 07/09/20 07/09/20 Range/Units 10:34 12:38 12:38 WBC (4.5-11.0) X10^3/uL RBC (4.0-5.2) X10^6/uL Hgb (12.0-16.0) g/dL Hct (36-46) % MCV (80-100) fL MCH (26-34) PG MCHC (30-36) % RDW (11.6-14.8) % Plt Count (150-400) X10^3/uL Neut % (Auto) (50-75) % Lymph % (Auto) (25-40) % Bennett % (Auto) (3-14) % Eos % (Auto) (2-4) % Baso % (Auto) (0-2) % Neut # (Auto) (0831-8749) /uL Lymph # (Auto) (9568-9743) /uL Bennett # (Auto) (0-900) /uL Eos # (Auto) (0-450) /uL Baso # (Auto) (0-100) /uL Sodium (137-145) mmol/L Potassium (3.4-5.1) mmol/L Chloride (98-107) mmol/L Carbon Dioxide (22-32) mmol/L BUN (7-17) mg/dL Creatinine (0.52-1.04) mg/dL Estimated GFR (>60) mL/min BUN/Creatinine Ratio (6-22) Glucose (80-110) mg/dL Lactate 0.7 (0.7-2.1) mmol/L Calcium (8.4-10.2) mg/dL Magnesium (1.6-2.3) mg/dL Total Bilirubin (0.2-1.3) mg/dL AST (14-36) IU/L ALT (<35) IU/L Alkaline Phosphatase (38-126) U/L Total Creatine Kinase (30-135) U/L CK-MB (CK-2) CK-MB (CK-2) Rel Index Troponin I (0.01-0.034) ng/mL Total Protein (6.3-8.2) g/dL Albumin (3.5-5.0) g/dL Globulin (1.7-4.1) g/dL Albumin/Globulin Ratio (1.0-2.8) TSH (0.47-4.68) uIU/mL Urine Color Yellow Urine Appearance Clear Urine pH 5.5 (4.5-8.0) Ur Specific [place] 1.025 (1.000-1.035) Urine Protein Trace H (Negative) Urine Glucose (UA) Negative (Negative) g/dL Urine Ketones Negative (NEGATIVE) Urine Occult Blood Negative (Negative) Urine Nitrate Negative (Negative) Urine Bilirubin Negative (NEGATIVE) Urine Urobilinogen 0.2 (0.2) E.U./dL Ur Leukocyte Esterase Negative (NEGATIVE) Urine RBC 0-1/hpf (0-5/HPF) Urine WBC 0-1/hpf (0-5/HPF) Ur Squamous Epith Cells 0-1 /hpf (0-5/HPF) Amorphous Sediment 1+ Urine Bacteria None seen (None) Hyaline Casts 5-10/lpf (None) Urine Mucus 1+ H (Negative) Ur Culture Indicated? Cult not indicated Salicylates (<20) mg/dL U Opiates 300ng/mL cut Negative (Negative) Ur Oxycodone Screen Negative (Negative) Urine Methadone Screen Negative (Negative) Acetaminophen (10-30) ug/mL Ur Barbiturates Screen Negative (Negative) U Tricyclic Antidepress Negative (Negative) Ur Phencyclidine Scrn Negative (Negative) Ur Amphetamines Screen Negative (Negative) U Methamphetamines Scrn Negative (Negative) Ur MDMA Scrn (Ecstasy) Negative (Negative) U Benzodiazepines Scrn Positive H (Negative) Urine Cocaine Screen Negative (Negative) U Marijuana (THC) Screen Negative (Negative) Ethyl Alcohol ( - 10) mg/dL SARS-CoV-2 (PCR) (Negative) ECG Data Attestation: I personally reviewed and interpreted this ECG as follows: Prior ECG tracings: available for review Interpretation: Normal sinus rhythm rate 62 p.r. interval 180 QRS [address] changes or T-wave inversions similar to previous EKG MDM Narrative Medical decision making narrative: She is seems to be minimally affected by the Xanax. She is immediately placed on 100% FiO2 and a non-rebreather. Initial finger carbon monoxide detector shows 2.7% she is a nonsmoker. She is awake alert appropriate. Patient has now had 2 suicide attempts this month pretty significant 1 today. She currently remains voluntary. I have discussed case with poison control along with hyperbaric physician at [facility] Dr. Morales. At this time there is no indication to hyperbaric therapy 100% oxygen only at this time. He does recommend 100% FiO2 for about 4 hours and then decreased. Patient's mental status actually does improve in she feels much better after oxygen therapy. Blood work does not show any significant at can not abnormalities. Social work has been in to evaluate patient. She has family at bedside. Patient signed out to Dr. Bunch. Awaiting placement. 07/10/20 received sign-out from Dr. Bunch, no events overnight. Awaiting placement Patient has been accepted at [facility] <Antonio Bunch, DO - Last Filed: 07/11/20 03:41> Lab Data Labs: Lab Results 07/09/20 07/09/20 07/09/20 Range/Units 09:44 09:44 09:44 WBC 7.6 (4.5-11.0) X10^3/uL RBC 4.40 (4.0-5.2) X10^6/uL Hgb 13.3 (12.0-16.0) g/dL Hct 39.5 (36-46) % MCV 89.6 (80-100) fL MCH 30.1 (26-34) PG MCHC 33.6 (30-36) % RDW 13.9 (11.6-14.8) % Plt Count 392 (150-400) X10^3/uL Neut % (Auto) 77.5 H (50-75) % Lymph % (Auto) 13.7 L (25-40) % Bennett % (Auto) 7.7 (3-14) % Eos % (Auto) 0.3 L (2-4) % Baso % (Auto) 0.8 (0-2) % Neut # (Auto) 5900 (0950-1192) /uL Lymph # (Auto) 1000 L (7419-5064) /uL Bennett # (Auto) 600 (0-900) /uL Eos # (Auto) 0 (0-450) /uL Baso # (Auto) 100 (0-100) /uL Sodium 133 L (137-145) mmol/L Potassium 4.1 (3.4-5.1) mmol/L Chloride 102 (98-107) mmol/L Carbon Dioxide 23 (22-32) mmol/L BUN 17 (7-17) mg/dL Creatinine 0.87 (0.52-1.04) mg/dL Estimated GFR > 60.0 (>60) mL/min BUN/Creatinine Ratio 19.5 (6-22) Glucose 102 (80-110) mg/dL Lactate (0.7-2.1) mmol/L Calcium 9.8 (8.4-10.2) mg/dL Magnesium (1.6-2.3) mg/dL Total Bilirubin 0.4 (0.2-1.3) mg/dL AST 34 (14-36) IU/L ALT 37 H (<35) IU/L Alkaline Phosphatase 89 (38-126) U/L Total Creatine Kinase 39 (30-135) U/L CK-MB (CK-2) TNP CK-MB (CK-2) Rel Index TNP Troponin I < 0.012 (0.01-0.034) ng/mL Total Protein 6.9 (6.3-8.2) g/dL Albumin 4.3 (3.5-5.0) g/dL Globulin 2.6 (1.7-4.1) g/dL Albumin/Globulin Ratio 1.7 (1.0-2.8) TSH (0.47-4.68) uIU/mL Urine Color Urine Appearance Urine pH (4.5-8.0) Ur Specific [place] (1.000-1.035) Urine Protein (Negative) Urine Glucose (UA) (Negative) g/dL Urine Ketones (NEGATIVE) Urine Occult Blood (Negative) Urine Nitrate (Negative) Urine Bilirubin (NEGATIVE) Urine Urobilinogen (0.2) E.U./dL Ur Leukocyte Esterase (NEGATIVE) Urine RBC (0-5/HPF) Urine WBC (0-5/HPF) Ur Squamous Epith Cells (0-5/HPF) Amorphous Sediment Urine Bacteria (None) Hyaline Casts (None) Urine Mucus (Negative) Ur Culture Indicated? Salicylates < 1.0 (<20) mg/dL U Opiates 300ng/mL cut (Negative) Ur Oxycodone Screen (Negative) Urine Methadone Screen (Negative) Acetaminophen < 10 L (10-30) ug/mL Ur Barbiturates Screen (Negative) U Tricyclic Antidepress (Negative) Ur Phencyclidine Scrn (Negative) Ur Amphetamines Screen (Negative) U Methamphetamines Scrn (Negative) Ur MDMA Scrn (Ecstasy) (Negative) U Benzodiazepines Scrn (Negative) Urine Cocaine Screen (Negative) U Marijuana (THC) Screen (Negative) Ethyl Alcohol < 10 ( - 10) mg/dL SARS-CoV-2 (PCR) (Negative) 07/09/20 07/09/20 07/09/20 Range/Units 09:44 09:44 09:44 WBC (4.5-11.0) X10^3/uL RBC (4.0-5.2) X10^6/uL Hgb (12.0-16.0) g/dL Hct (36-46) % MCV (80-100) fL MCH (26-34) PG MCHC (30-36) % RDW (11.6-14.8) % Plt Count (150-400) X10^3/uL Neut % (Auto) (50-75) % Lymph % (Auto) (25-40) % Bennett % (Auto) (3-14) % Eos % (Auto) (2-4) % Baso % (Auto) (0-2) % Neut # (Auto) (6697-0530) /uL Lymph # (Auto) (9004-4933) /uL Bennett # (Auto) (0-900) /uL Eos # (Auto) (0-450) /uL Baso # (Auto) (0-100) /uL Sodium (137-145) mmol/L Potassium (3.4-5.1) mmol/L Chloride (98-107) mmol/L Carbon Dioxide (22-32) mmol/L BUN (7-17) mg/dL Creatinine (0.52-1.04) mg/dL Estimated GFR (>60) mL/min BUN/Creatinine Ratio (6-22) Glucose (80-110) mg/dL Lactate (0.7-2.1) mmol/L Calcium (8.4-10.2) mg/dL Magnesium 1.9 (1.6-2.3) mg/dL Total Bilirubin (0.2-1.3) mg/dL AST (14-36) IU/L ALT (<35) IU/L Alkaline Phosphatase (38-126) U/L Total Creatine Kinase (30-135) U/L CK-MB (CK-2) CK-MB (CK-2) Rel Index Troponin I (0.01-0.034) ng/mL Total Protein (6.3-8.2) g/dL Albumin (3.5-5.0) g/dL Globulin (1.7-4.1) g/dL Albumin/Globulin Ratio (1.0-2.8) TSH 2.50 (0.47-4.68) uIU/mL Urine Color Urine Appearance Urine pH (4.5-8.0) Ur Specific [place] (1.000-1.035) Urine Protein (Negative) Urine Glucose (UA) (Negative) g/dL Urine Ketones (NEGATIVE) Urine Occult Blood (Negative) Urine Nitrate (Negative) Urine Bilirubin (NEGATIVE) Urine Urobilinogen (0.2) E.U./dL Ur Leukocyte Esterase (NEGATIVE) Urine RBC (0-5/HPF) Urine WBC (0-5/HPF) Ur Squamous Epith Cells (0-5/HPF) Amorphous Sediment Urine Bacteria (None) Hyaline Casts (None) Urine Mucus (Negative) Ur Culture Indicated? Salicylates (<20) mg/dL U Opiates 300ng/mL cut (Negative) Ur Oxycodone Screen (Negative) Urine Methadone Screen (Negative) Acetaminophen (10-30) ug/mL Ur Barbiturates Screen (Negative) U Tricyclic Antidepress (Negative) Ur Phencyclidine Scrn (Negative) Ur Amphetamines Screen (Negative) U Methamphetamines Scrn (Negative) Ur MDMA Scrn (Ecstasy) (Negative) U Benzodiazepines Scrn (Negative) Urine Cocaine Screen (Negative) U Marijuana (THC) Screen (Negative) Ethyl Alcohol ( - 10) mg/dL SARS-CoV-2 (PCR) Negative (Negative) 07/09/20 07/09/20 07/09/20 Range/Units 10:34 12:38 12:38 WBC (4.5-11.0) X10^3/uL RBC (4.0-5.2) X10^6/uL Hgb (12.0-16.0) g/dL Hct (36-46) % MCV (80-100) fL MCH (26-34) PG MCHC (30-36) % RDW (11.6-14.8) % Plt Count (150-400) X10^3/uL Neut % (Auto) (50-75) % Lymph % (Auto) (25-40) % Bennett % (Auto) (3-14) % Eos % (Auto) (2-4) % Baso % (Auto) (0-2) % Neut # (Auto) (7382-1357) /uL Lymph # (Auto) (3765-8447) /uL Bennett # (Auto) (0-900) /uL Eos # (Auto) (0-450) /uL Baso # (Auto) (0-100) /uL Sodium (137-145) mmol/L Potassium (3.4-5.1) mmol/L Chloride (98-107) mmol/L Carbon Dioxide (22-32) mmol/L BUN (7-17) mg/dL Creatinine (0.52-1.04) mg/dL Estimated GFR (>60) mL/min BUN/Creatinine Ratio (6-22) Glucose (80-110) mg/dL Lactate 0.7 (0.7-2.1) mmol/L Calcium (8.4-10.2) mg/dL Magnesium (1.6-2.3) mg/dL Total Bilirubin (0.2-1.3) mg/dL AST (14-36) IU/L ALT (<35) IU/L Alkaline Phosphatase (38-126) U/L Total Creatine Kinase (30-135) U/L CK-MB (CK-2) CK-MB (CK-2) Rel Index Troponin I (0.01-0.034) ng/mL Total Protein (6.3-8.2) g/dL Albumin (3.5-5.0) g/dL Globulin (1.7-4.1) g/dL Albumin/Globulin Ratio (1.0-2.8) TSH (0.47-4.68) uIU/mL Urine Color Yellow Urine Appearance Clear Urine pH 5.5 (4.5-8.0) Ur Specific [place] 1.025 (1.000-1.035) Urine Protein Trace H (Negative) Urine Glucose (UA) Negative (Negative) g/dL Urine Ketones Negative (NEGATIVE) Urine Occult Blood Negative (Negative) Urine Nitrate Negative (Negative) Urine Bilirubin Negative (NEGATIVE) Urine Urobilinogen 0.2 (0.2) E.U./dL Ur Leukocyte Esterase Negative (NEGATIVE) Urine RBC 0-1/hpf (0-5/HPF) Urine WBC 0-1/hpf (0-5/HPF) Ur Squamous Epith Cells 0-1 /hpf (0-5/HPF) Amorphous Sediment 1+ Urine Bacteria None seen (None) Hyaline Casts 5-10/lpf (None) Urine Mucus 1+ H (Negative) Ur Culture Indicated? Cult not indicated Salicylates (<20) mg/dL U Opiates 300ng/mL cut Negative (Negative) Ur Oxycodone Screen Negative (Negative) Urine Methadone Screen Negative (Negative) Acetaminophen (10-30) ug/mL Ur Barbiturates Screen Negative (Negative) U Tricyclic Antidepress Negative (Negative) Ur Phencyclidine Scrn Negative (Negative) Ur Amphetamines Screen Negative (Negative) U Methamphetamines Scrn Negative (Negative) Ur MDMA Scrn (Ecstasy) Negative (Negative) U Benzodiazepines Scrn Positive H (Negative) Urine Cocaine Screen Negative (Negative) U Marijuana (THC) Screen Negative (Negative) Ethyl Alcohol ( - 10) mg/dL SARS-CoV-2 (PCR) (Negative) Discharge Plan Departure Patient Disposition: Xfer Psychiatric Hosp Clinical Impression: Suicide attempt Carbon monoxide poisoning, suicide attempt Qualifiers: Encounter type: initial encounter Qualified Code(s): T58.92XA - Toxic effect of carbon monoxide from unspecified source, intentional self-harm, initial encounter Benzodiazepine overdose Qualifiers: Encounter type: initial encounter Injury intent: intentional self-harm Qualified Code(s): T42.4X2A - Poisoning by benzodiazepines, intentional self- harm, initial encounter
--- NOTE | 2020-07-09 09:35 | PC.NURSE ---
patient in ED today for suicide attempt. she states she had a recent dentists appointments resulting in a root canal. there were a series of appointments and she felt more and more anxious with every appointment. she states panic attacks from dentist appointments. the root canal appointments ended when complete. she then states she started to feel tooth pain in a different tooth and did not want to go through that again. She had a conversation with her about suicide and he did not want to live without her. The both of them took 10-15 0.5mg alprazolams and entered their car in the garage, started it and went to sleep. She awoke this morning. He was unarrousable and she called 911. EMS reports the car had ran out of gas. Upon arrival her SpCO% 2.7. Placed on non rebreather at max flow, >15L. Katiuska is calm and cooperative. she is drowsy and easily arrousable by voice.
--- NOTE | 2020-07-09 09:54 | PC.NURSE ---
portable CO monitor readings 0915 2.7, 0947 1.9.
--- NOTE | 2020-07-09 09:56 | PC.NURSE ---
patient is being monitored in trauma 1, nurse at bedside.
--- NOTE | 2020-07-09 10:01 | PC.NURSE ---
patient belongings, jeans, shoes, socks, car keys, placed in belonging bag labeled with patinet sticker and placed in locked cabinet
[2020-07-09 10:02] LABS: Add Manual Diff / Slide Review NO; Basophils Absolute Auto 100 /uL (0-100); Basophils Percent Auto 0.8 % (0-2); Eosinophils Absolute Auto 0 /uL (0-450); Eosinophils Percent Auto 0.3 % (2-4); Hematocrit 39.5 % (36-46); Hemoglobin 13.3 g/dL (12.0-16.0); Lymphocytes Absolute Auto 1000 /uL (1100-4500); Lymphocytes Percent Auto 13.7 % (25-40); Mean Corpuscular HGB Conc 33.6 % (30-36); Mean Corpuscular Hemoglobin 30.1 PG (26-34); Mean Corpuscular Volume 89.6 fL (80-100); Monocytes Absolute Auto 600 /uL (0-900); Monocytes Percent Auto 7.7 % (3-14); Neutrophils Absolute Auto 5900 /uL (1500-7000); Neutrophils Percent Auto 77.5 % (50-75); Platelet Count 392 X10^3/uL (150-400); Red Cell Distribution Width 13.9 % (11.6-14.8); White Blood Cell Count 7.6 X10^3/uL (4.5-11.0)
--- NOTE | 2020-07-09 10:06 | PC.NURSE ---
additional paitnet belongings, blanket, slipper, jacket, hat, placed in belongings bag, labeled with patinet label and placed in locked cabinet
[2020-07-09] MEDS: SODIUM CHLORIDE 0.9% 1,000 ML 150 ML IV (10:10)
[2020-07-09 10:17] LABS: Creatine Kinase 39 U/L (30-135)
[2020-07-09 10:19] LABS: Acetaminophen < 10 ug/mL (10-30); Alanine Aminotransferase 37 IU/L (<35); Albumin 4.3 g/dL (3.5-5.0); Albumin Globulin Ratio 1.7 (1.0-2.8); Alkaline Phosphatase 89 U/L (38-126); Aspartate Aminotransferase 34 IU/L (14-36); BUN Creatinine Ratio 19.5 (6-22); Bilirubin Total 0.4 mg/dL (0.2-1.3); Blood Urea Nitrogen 17 mg/dL (7-17); Calcium 9.8 mg/dL (8.4-10.2); Carbon Dioxide 23 mmol/L (22-32); Chloride 102 mmol/L (98-107); Estimated Glomerular Filt Rate > 60.0 mL/min (>60); Ethanol (ETOH) < 10 mg/dL; Globulin 2.6 g/dL (1.7-4.1); Glucose 102 mg/dL (80-110); HEMOLYSIS < 15 (0-50); Potassium 4.1 mmol/L (3.4-5.1); Salicylate < 1.0 mg/dL (<20); Sodium 133 mmol/L (137-145); Total Protein 6.9 g/dL (6.3-8.2)
[2020-07-09 10:28] LABS: Troponin I < 0.012 ng/mL (0.01-0.034)
--- NOTE | 2020-07-09 10:31 | PC.NURSE ---
This nurse no longer at bedside per charge nurse. Patient to be monitored q15 by ADAM/SHERLYN
[2020-07-09 10:45] LABS: Lactate (Lactic Acid) 0.7 mmol/L (0.7-2.1)
[2020-07-09 11:03] LABS: COVID19 - ADMIT (NP swab/PCR) Negative (Negative)
--- NOTE | 2020-07-09 11:36 | PC.NURSE ---
Received permission from Zaida to call her family. Called [facility] [phone]. Given update, she will come to ED. She asked me to call her brother Boris [phone], given update.
--- NOTE | 2020-07-09 11:44 | PC.NURSE ---
patient not tolerating non rebreather. RT switched to high flow nasal cannula to maintain 100% FiO2.
--- NOTE | 2020-07-09 12:12 | PC.NURSE ---
posion control updated
--- NOTE | 2020-07-09 12:16 | PC.NURSE ---
Pt providing urine sample at bedside commode. Pt is calm and cooperative
--- NOTE | 2020-07-09 12:18 | PC.NURSE ---
MOTOR VEHICLES SUPERVISOR found IV displaced. Provider notified, No order to place another IV given.
--- NOTE | 2020-07-09 12:25 | PC.NURSE ---
Sitter monitoring from nurses station per Charge nurse stating as long as you have direct line of sight.
--- NOTE | 2020-07-09 12:30 | PC.NURSE ---
Pt's daughter is in room at bedside
[2020-07-09 12:40] LABS: Bacteria Urine None Seen
[2020-07-09 12:43] LABS: Appearance Urine UA CLEAR; Bilirubin Urine UA NEGATIVE (NEGATIVE); Color Urine UA YELLOW; Glucose Urine UA NEGATIVE (Negative); Ketones Urine UA NEGATIVE (NEGATIVE); Leukocyte Esterase Urine UA NEGATIVE (NEGATIVE); Nitrite Urine UA NEGATIVE (Negative); Occult Blood Urine UA NEGATIVE (Negative); Protein Urine UA TRACE (Negative); Specific Gravity Urine UA 1.025 (1.000-1.035); Urobilinogen Urine UA 0.2 E.U./dL (0.2)
[2020-07-09 12:46] LABS: UR Morphine/Opiate cutoff 300 Negative (Negative); Ur Creatinine Normal (Normal); Ur Specific Gravity Normal (Normal); Urine Amphetamines Negative (Negative); Urine Barbiturates Negative (Negative); Urine Benzodiazepines Positive (Negative); Urine Cocaine Negative (Negative); Urine MDMA Negative (Negative); Urine Methadone Negative (Negative); Urine Methamphetamines Negative (Negative); Urine Oxycodone Negative (Negative); Urine Phencyclidine Negative (Negative); Urine Tetrahydrocannabinol Negative (Negative); Urine Tricyclic Antidepressant Negative (Negative); Urine pH Normal (Normal)
[2020-07-09 12:48] LABS: pH Urine UA 5.5 (4.5-8.0)
[2020-07-09 12:57] LABS: Amorphous Sediment Urine 1+; Hyaline Casts Urine 5-10/LPF; Mucus Urine 1+ (Negative); RBC Urine 0-1/HPF (0-5/HPF); Squamous Epithelial Cell Urine 0-1 /HPF (0-5/HPF); WBC Urine 0-1/HPF (0-5/HPF)
[2020-07-09 12:58] LABS: Culture Indicated Urine Cult Not Indicated
--- NOTE | 2020-07-09 14:14 | PC.NURSE ---
RT titrated spo2% to 50%
--- NOTE | 2020-07-09 14:15 | PC.NURSE ---
Patient's daughter came in at 1413 and they chatted for a few minutes. Another family member will be visiting patient, as well.
--- NOTE | 2020-07-09 14:18 | PC.NURSE ---
At 1418 male family member, Boris, came in to see patient and they spoke for a while.
--- NOTE | 2020-07-09 15:39 | CM.SWNOTE ---
Patient is 70 yo female presenting at ED due to SI and SA. ceramics test engineer met with patient and patient's son Boris at bedside. Patient presented as alert. Patient stated that she is so anxious about her dental care and dental pain that she didn't want to worry anymore and wanted to end her life. Patient stated that her stated that he could not live without her and they attempted suicide together. Patient is somewhat open to voluntary inpatient but would prefer to be home. Patient recently met with [facility] Dr. Andersen after first SA 2 weeks ago. ceramics test engineer will seek inpatient facilities and contact DCR if patient does not agree to voluntary inpatient. DRAPERY ESTIMATOR - Platform Software Engineer Assessment DRAPERY ESTIMATOR - Platform Software Engineer Assessment Start: 07/09/20 15:20 Freq: Status: Active Protocol: Document 07/09/20 15:21 LN (Rec: 07/09/20 15:38 LN [id number]) DRAPERY ESTIMATOR/Platform Software Engineer Assessment Time Spent with Patient Start date 07/09/20 Visit Start Time 14:45 End date 07/09/20 Visit End Time 15:15 Total time Care Management spent on 30 patient visit-in minutes Mental Health Screening Include Onset, Duration, Intensity Presenting Problem 70 yo female patient present at the ED due to sucide attempt. She and her shared a bottle of .5 mg Xanax taking several tablets and went into their garage and turned on their car at midnight last night. Precipitating Event(s) Patient reports having dental pain and reported experiencing anxiety and depression. This is patient's 2nd suicide attempt in two weeks. Current Behavioral Health Provider(s) Dr. Andersen Psych [phone] Facility, Provider, Ph. # [phone] Psych. Hx Mental Health and Chemical Diagnosis of depression and Dependency history of SI and SA. Family Hx of Behavioral Abuse None reported. Psychiatric Hospitalizations (date(s)/ None reported. location) Psychosocial information & Support Patient reports ongoing Systems depression and anxiety. Patient resides with in [place]. Patient has a daughter that lives near by in [place] and sons residing in [place], [place] and [place]. School/Work Retired. Mental Status Orientation (Person/Place/Time) Ox3 Stated Mood ok Affect (Congruent with Mood?) Congruent with mood Thought Content - Specify/Describe Patient reported her worry Obsessions, Delusions, Hallucinations about dental pain and dental work and continued to refer back to discussing that issue. Thought Processes (Nncipiu-Gvqstdgg-Mqzu Unknown Syjjretz-Locfebfm-Qvkovoheps- Uvxrrzsothxvmj-Emyario-Qetjocjwqkge- Thought Blocking) Speech (Ambfnl-Okiv-Avsnefy-Rapid-Soft- Normal/slow Loud-Pressured) Motor (Galuda-Mzzdfpzbk-Vivl-Other) Unknown Insight (Ooib-Afiy-Ewjf/Limited) Poor/limited Judgement (Nvzz-Vqrm-Vita/Limited) Poor/limited Impulse Control (Adequate-Impaired) Impaired Memory (Gxvqdthcw-Ehflbo-Xkmgpx, Intact Impaired-Intact) Concentration (Intact-Impaired) Intact Attention (Intact-Impaired) Intact Behavior (Appropriate-Inappropriate) Appropriate during conversation Additional Comment Patient is almost medically stable and 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 Risk Assessment Suicidal Ideation (Plan) Yes Comment Patient discussed SI and has had two recent SAs. Patient was open to looking into voluntary inpatient but stated she would prefer to go home. If patient declines inpatient, DCR will be contacted. Intervention Intervention ceramics test engineer discussed inpatient treatment. Plan RA Plan ceramics test engineer will identify inpatient facility. HU Ramirez
--- NOTE | 2020-07-09 16:31 | PC.NURSE ---
Continuing to try to find bed placement for Mrs. Jones. Called [facility] and faxed clinical information. [facility] ([place] Intake will call back if bed becomes available [place]: No beds [facility] hospital: left message Family supportive and allowed liberal visitation. Of note, pt had appointment previously scheduled with Dr. Andersen today. He saw briefly in the ED to touch base.
--- NOTE | 2020-07-09 16:35 | PC.NURSE ---
daughter at bedside, sitter with line of sight monitoring from nurses station. Patient denies needs at this time. Removed from High flow NC
--- NOTE | 2020-07-09 19:07 | PC.NURSE ---
paitent eating dinner. COMPUTER SUPPORT ANALYST monitoring from nurses station
--- NOTE | 2020-07-09 20:22 | PC.NURSE ---
Daughter at bedside.
--- NOTE | 2020-07-09 21:41 | PC.NURSE ---
[facility] called to update. Still considering. Requested Magnesium level, EKG, other records to be faxed. Magnesium order obtained from Dr. Bunch. Other records requested collected and will be faxed.
[2020-07-09 21:51] LABS: Magnesium 1.9 mg/dL (1.6-2.3)
[2020-07-10 01:18] VITALS: BP 123/74; PULSE 72; RESP 18; O2SAT 97
--- NOTE | 2020-07-10 05:07 | PC.NURSE ---
When she was awake she was offered beverages and snacks tonight.
--- NOTE | 2020-07-10 07:50 | PC.NURSE ---
Speaking with staff
[2020-07-10 08:44] VITALS: BP 133/83; PULSE 80; RESP 16; O2SAT 100
--- NOTE | 2020-07-10 08:48 | PC.NURSE ---
pt speaks well of recent therapy with dr. bolton. pt states she doesn't want this phobia her fear of the dentist. pt states she is now has anxiety thinking what if something happened that she had to go see a dentist.
--- NOTE | 2020-07-10 09:28 | CM.SWNOTE ---
Addendum entered by HU Martinez 07/10/20 11:18: ADD: Return call from JANE Monteiro at [facility], discussing that they have one female shared bed available with another pt similar in age with suicide attempt and wanting to know if pt would be agreeable. ED RN updated Dtr/pt and they are agreeable with voluntary plan to [facility] today with roommate. SW updated Thania at [facility] and their Physician is agreeable to accepting pt and no specific time that they would like pt to admit but request call with time for transport and quick RN report with updates on pt. SW updated pt's RN Tania and she is agreeable to have ED MEDICAL DEVICE SALES REPRESENTATIVE set up BLS transport to [facility] and RN will call report and time for transport to [facility]. Plan: Patient to d/c to [facility] voluntary Inpt MH unit today via BLS and Dtr bedside and agreeable. HU Martinez Original Note: [facility] and determine if [facility] could [facility] last night as they do not accept new admissions after 1999. [facility] was reviewing but ED unsure if they can accept. SW called following facilities that accept [facility]: [facility]- reviewing and NTL will call back this morning [facility] msg with admissions requesting call back Jami- melissa, not accepting voluntary pts right now [facility] msg with new referral, requested call back SW received a msg from [facility] and they state the referral was closed out and they are not willing to review further due to frustration with lack of information overnight and what they felt was poor communication with ED staff yesterday evening. Plan: SW to follow for [facility] review and return call from [facility] to see if they have an opening and willing to review. Pt currently too risky for safe d/c to the community due to multiple significant intentional suicide attempts in the past month. HU Martinez
--- NOTE | 2020-07-10 09:33 | PC.NURSE ---
Pt is getting anxious about the condition of her . Daughter has arrived at the bedside.
[2020-07-10] MEDS: hydrOXYzine pamoate 25 MG CAPSULE PO (11:02)
[2020-07-10 12:02] VITALS: BP 167/85; PULSE 80; RESP 18; O2SAT 100
--- NOTE | 2020-07-10 12:03 | PC.NURSE ---
EMS here to get pt. Pt is very anxious about the transport and going to a new facility. Daughter brought her clothes.
== END 2020-07-10 12:30 ==
PROVIDERS: Emergency Medicine; Emergency Provider Emergency Medicine
DX: T42.4X2A Poisoning by benzodiazepines, intentional self-harm, initial encounter (principal)
CPT/HCPCS: 36415; 71045; 80053; 80305; 80320; 80329; 81001; 82375; 82550; 83605; 83735; 84443; 84484; 85025; 87635; 93005; 96360; 96361; 99285; G0480

== ENCOUNTER → 2020-07-23 10:44 | Outpatient (CLI) | payer MEDICARE, SELFPAY ==
[2020-06-20 17:26] VITALS: BMI 17.2
[2020-07-23] MEDS: COVID-19 VACC #1, MRNA(MOD) 100 MCG/0.5 ML VIAL IM (10:52)
== END ==
PROVIDERS: Visit Provider Internal Medicine
DX: Z23 Encounter for immunization (principal); F41.1 Generalized anxiety disorder; F41.0 Panic disorder [episodic paroxysmal anxiety]; F33.2 Major depressive disorder, recurrent severe without psychotic features
CPT/HCPCS: 0011A; 90833; 91301; 99214

== ENCOUNTER → 2020-08-21 10:29 | Outpatient (CLI) | payer MEDICARE, SELFPAY ==
[2020-06-20 17:26] VITALS: BMI 17.2
[2020-08-21] MEDS: COVID-19 VACC #2, MRNA(MOD) 100 MCG/0.5 ML VIAL IM (10:41)
== END ==
PROVIDERS: Visit Provider Internal Medicine
DX: Z23 Encounter for immunization (principal)
CPT/HCPCS: 0012A; 91301

== ENCOUNTER → 2023-05-17 07:52 | Outpatient (CLI) | payer MEDICARE, SELFPAY ==
[2021-09-29 11:54] VITALS: BMI 17.2
[2023-05-17 08:57] LABS: Add Manual Diff / Slide Review NO; Basophils Absolute Auto 0 /uL (0-100); Basophils Percent Auto 0.8 % (0-2); Eosinophils Absolute Auto 100 /uL (0-450); Hematocrit 37.4 % (36-46); Hemoglobin 12.7 g/dL (12.0-16.0); Lymphocytes Absolute Auto 1200 /uL (1100-4500); Lymphocytes Percent Auto 28.2 % (25-40); Mean Corpuscular HGB Conc 33.9 % (30-36); Mean Corpuscular Hemoglobin 30.3 PG (26-34); Mean Corpuscular Volume 89.5 fL (80-100); Monocytes Absolute Auto 500 /uL (0-900); Monocytes Percent Auto 11.1 % (3-14); Neutrophils Absolute Auto 2500 /uL (1500-7000); Neutrophils Percent Auto 57.9 % (50-75); Platelet Count 242 X10^3/uL (150-400); Red Blood Cell Count 4.18 X10^6/uL (4.0-5.2); Red Cell Distribution Width 14.1 % (11.6-14.8); White Blood Cell Count 4.2 X10^3/uL (4.5-11.0)
[2023-05-17 09:44] LABS: Alanine Aminotransferase 22 IU/L (<35); Albumin 3.8 g/dL (3.5-5.0); Albumin Globulin Ratio 1.6 (1.0-2.8); Alkaline Phosphatase 62 U/L (38-126); Aspartate Aminotransferase 29 IU/L (14-36); BUN Creatinine Ratio 22.9 (6-22); Bilirubin Total 0.5 mg/dL (0.2-1.3); Blood Urea Nitrogen 19 mg/dL (7-17); Carbon Dioxide 29 mmol/L (22-32); Chloride 105 mmol/L (98-107); Cholesterol 254 mg/dL (140-199); Estimated Glomerular Filt Rate > 60 mL/min (>60); Globulin 2.4 g/dL (1.7-4.1); Glucose 93 mg/dL (80-110); HDL Cholesterol 104 mg/dL (40-60); HEMOLYSIS < 15 (0-50); LDL Cholesterol Calculated 141 mg/dL (<100); Sodium 139 mmol/L (137-145); Total Protein 6.2 g/dL (6.3-8.2); Triglycerides 47 mg/dL (35-150)
== END ==
PROVIDERS: PCP Family Medicine; Referring Provider Family Medicine; Visit Provider Family Medicine
DX: Z00.00 Encounter for general adult medical examination without abnormal findings (principal); F32.9 Major depressive disorder, single episode, unspecified; E87.1 Hypo-osmolality and hyponatremia; Z13.220 Encounter for screening for lipoid disorders; E78.1 Pure hyperglyceridemia; F41.1 Generalized anxiety disorder; F41.0 Panic disorder [episodic paroxysmal anxiety]
CPT/HCPCS: 36415; 80053; 80061; 85025

== ENCOUNTER → 2023-06-10 11:34 | Outpatient (CLI) | payer MEDICARE, SELFPAY ==
[2021-09-29 11:54] VITALS: BMI 17.2
--- NOTE | 2023-06-10 11:35 | DI.MG.S_ITS ---
BILATERAL DIGITAL SCREENING MAMMOGRAM 3D/2D WITH CAD: 06/10/2023 CLINICAL: Baseline exam. Routine screening. Family History of breast cancer. No prior exams were available for comparison. Both breasts are heterogeneously dense, which may obscure small masses (category c / 51-75% glandular tissue). Current study was also evaluated with a Computer Aided Detection (CAD) system. There is a possible asymmetry in the left breast middle depth central to the nipple seen on the mediolateral oblique view only. Benign vascular calcifications bilaterally. No other significant masses, calcifications, or other findings are seen in either breast. IMPRESSION: INCOMPLETE: NEEDS ADDITIONAL IMAGING EVALUATION The possible asymmetry in the left breast is indeterminate. Additional views with possible ultrasound are recommended. Based on the Tyrer Cuzick model (a risk assessment model) the patient's lifetime risk is 6.1% and her 10 year risk is 6.1%. According to the ACR, ACS, and NCCN guidelines, an annual breast MRI exam along with mammogram is recommended if the patient's lifetime risk is 20% or greater. This exam was interpreted at Station ID: [id number]. NOTE: For mammograms, a report in lay terms will be sent to the patient. Approximately 15% of breast malignancies will not be visualized mammographically. In the management of a palpable breast mass, a negative mammogram must not discourage biopsy of a clinically suspicious lesion. Electronically Signed By: Alber Aragon M.D. [facility]/:06/10/2023 12:22:46 letter sent: Additional Imaging Needed ACR BI-RADS Category 0: Incomplete 3340F
--- NOTE | 2023-06-10 11:35 | DI.RAD.S_ITS ---
Bone Density Report Name: ANDREA MATAMOROS Age: 73 Sex: Female Ethnicity: White Date of : 1950 Indication: postmenopausal; screening for osteoporosis; Referring Provider: ERWIN RAMIREZ Study: Bone densitometry was performed. Exam Date: June 10, 2023 Accession number: [id number] Bone Density: Region BMD T-score Z-score Classification AP Spine(L1-L4) 0.680 -3.3 -0.9 Osteoporosis Femoral Neck (Left) 0.555 -2.6 -0.6 Osteoporosis Total Hip (Left) 0.596 -2.8 -1.0 Osteoporosis Femoral Neck (Right) 0.544 -2.7 -0.6 Osteoporosis Total Hip (Right) 0.570 -3.1 -1.3 Osteoporosis Total Hip Mean 0.583 -3.0 -1.2 Osteoporosis World Health Organization criteria for BMD impression classify patients as: Normal (T-score at or above -1.0), Osteopenia (T-score between -1.0 and -2.5), or Osteoporosis (T-score at or below -2.5). 10-year Fracture Risk: FRAX not reported because: Some T-score for Spine Total or Hip Total or Femoral Neck at or below -2.5 Impression: The patient has osteoporosis, based on the Total Spine T-score. Discussion: INCREASED RISK OF FRACTURE. BONE DENSITY IS UNDESIRABLY LOW AT ONE OR MORE SKELETAL SITES, CONSISTENT WITH POSTMENOPAUSAL OSTEOPOROSIS. This patient's lowest T-score meets the World Health Organization's (WHO) criteria for osteoporosis at one or more sites (T-score -2.5 or below). In untreated patients, the risk of osteoporotic fracture increases approximately two-fold for each 1.0 SD decrease in T-score. Low bone density is not the only risk factor for fracture; also consider factors such as patient's age, frailty or poor health, risk of falling, risk of injury, previous osteoporotic fracture, family history of osteoporosis, cigarette smoking, low body weight, etc. Not everyone with low bone mineral density has osteoporosis; osteomalacia and other metabolic bone disorders should also be considered. Patients who have osteoporosis should be evaluated for specific diseases and conditions (secondary causes) that may cause or contribute to bone loss. The [place] Association [employer] Clinical Endocrinologists (AACE) and National Osteoporosis Foundation (NOF) recommend pharmacologic intervention for all postmenopausal women whose T-score is in this range. The patient should follow a healthful lifestyle (good nutrition with adequate calcium and vitamin D, and appropriate weight-bearing exercise). Follow-Up: Consider a repeat BMD and Vertebral Fracture Assessment (VFA) exam in 2 years or sooner if medically necessary, to reassess this patient's status. Reported by: LATIA PEREZ M.D. on 06/10/2023 12:28:00 PM.
== END ==
LOC: MAMMO 11:35
PROVIDERS: PCP Family Medicine; Referring Provider Family Medicine; Visit Provider Family Medicine
DX: Z12.31 Encounter for screening mammogram for malignant neoplasm of breast (principal); R92.333 Mammographic heterogeneous density, bilateral breasts; Z80.3 Family history of malignant neoplasm of breast; M81.0 Age-related osteoporosis without current pathological fracture; Z78.0 Asymptomatic menopausal state
CPT/HCPCS: 77063; 77067; 77080

== ENCOUNTER → 2023-07-05 13:23 | Outpatient (CLI) | payer MEDICARE, SELFPAY ==
[2021-09-29 11:54] VITALS: BMI 17.2
--- NOTE | 2023-07-05 13:26 | DI.MG.S_ITS ---
UNILATERAL LEFT DIGITAL DIAGNOSTIC MAMMOGRAM 3D/2D WITH ADDITIONAL VIEWS: 07/05/2023 CLINICAL: Additional evaluation requested from prior study. Comparison is made to exam dated: 06/10/2023 mammogram - [facility]. The left breast is heterogeneously dense, which may obscure small masses (category c / 51-75% glandular tissue). There is a possible asymmetry in the left breast middle depth central to the nipple seen on the mediolateral oblique view only. This is not seen in additional views. No other significant masses or calcifications are seen in the breast. Benign vascular calcifications. IMPRESSION: BENIGN There is no mammographic evidence of malignancy. The possible asymmetry in the left breast is consistent with fibroglandular tissue and is benign. A 1 year screening mammogram is recommended. Based on the Tyrer Cuzick model (a risk assessment model) the patient's lifetime risk is 6.1% and her 10 year risk is 6.1%. According to the ACR, ACS, and NCCN guidelines, an annual breast MRI exam along with mammogram is recommended if the patient's lifetime risk is 20% or greater. This exam was interpreted at Station ID: [id number]. NOTE: For mammograms, a report in lay terms will be sent to the patient. Approximately 15% of breast malignancies will not be visualized mammographically. In the management of a palpable breast mass, a negative mammogram must not discourage biopsy of a clinically suspicious lesion. Electronically Signed By: Alber Aragon M.D. [facility]/:07/05/2023 14:01:14 letter sent: Normal Exam ACR BI-RADS Category 2: Benign Finding(s) 3342F
== END ==
PROVIDERS: PCP Family Medicine; Referring Provider Family Medicine; Visit Provider Family Medicine
DX: R92.8 Other abnormal and inconclusive findings on diagnostic imaging of breast (principal); R92.332 Mammographic heterogeneous density, left breast
CPT/HCPCS: 77065; G0279

== ENCOUNTER → 2024-08-18 10:21 | Outpatient (CLI) | payer MEDICARE, SELFPAY ==
[2021-09-29 11:54] VITALS: BMI 17.2
[2024-08-18 12:18] LABS: Appearance Urine UA CLEAR; Bilirubin Urine UA NEGATIVE (NEGATIVE); Color Urine UA YELLOW; Glucose Urine UA NEGATIVE (Negative); Ketones Urine UA NEGATIVE (NEGATIVE); Leukocyte Esterase Urine UA 1+ (NEGATIVE); Nitrite Urine UA NEGATIVE (Negative); Occult Blood Urine UA TRACE-INTACT (Negative); Protein Urine UA NEGATIVE (Negative); Specific Gravity Urine UA <=1.005 (1.000-1.035); Urobilinogen Urine UA 0.2 E.U./dL (0.2)
[2024-08-18 12:43] LABS: Bacteria Urine Many (>30); Culture Indicated Urine Specimen Cultured; RBC Urine 1-5/HPF (0-5/HPF); Squamous Epithelial Cell Urine 0-1 /HPF (0-5/HPF); Urine Volume 10mL (spun); WBC Urine 10-30/HPF (0-5/HPF)
== END ==
PROVIDERS: PCP Family Medicine; Referring Provider Family Medicine; Visit Provider Family Medicine
DX: R39.15 Urgency of urination (principal); N39.0 Urinary tract infection, site not specified
CPT/HCPCS: 81001; 87077; 87086; 87186

== ENCOUNTER → 2024-09-06 11:11 | Outpatient (CLI) | payer MEDICARE, SELFPAY ==
[2024-09-06 10:55] VITALS: BMI 17.2
[2024-09-06 11:46] LABS: Appearance Urine UA CLEAR; Bilirubin Urine UA NEGATIVE (NEGATIVE); Color Urine UA YELLOW; Glucose Urine UA NEGATIVE (Negative); Ketones Urine UA NEGATIVE (NEGATIVE); Leukocyte Esterase Urine UA NEGATIVE (NEGATIVE); Nitrite Urine UA NEGATIVE (Negative); Occult Blood Urine UA NEGATIVE (Negative); Protein Urine UA NEGATIVE (Negative); Specific Gravity Urine UA <=1.005 (1.000-1.035); Urobilinogen Urine UA 0.2 E.U./dL (0.2)
[2024-09-06 11:57] LABS: Bacteria Urine None Seen; Culture Indicated Urine Cult Not Indicated; RBC Urine None Seen (0-5/HPF); Squamous Epithelial Cell Urine 0-1 /HPF (0-5/HPF); Urine Volume 10mL (spun); WBC Urine None Seen (0-5/HPF)
== END ==
PROVIDERS: PCP Family Medicine; Referring Provider Family Medicine; Visit Provider Family Medicine
DX: R39.9 Unspecified symptoms and signs involving the genitourinary system (principal)
CPT/HCPCS: 81001

== ENCOUNTER → 2024-11-02 07:45 | Outpatient (CLI) | payer MEDICARE, SELFPAY ==
[2024-09-06 10:55] VITALS: BMI 17.2
[2024-11-02 10:00] LABS: Add Manual Diff / Slide Review NO; Hematocrit 36.7 % (36-46); Hemoglobin 12.6 g/dL (12.0-16.0); Lymphocytes Absolute Auto 1300 /uL (1100-4500); Mean Corpuscular HGB Conc 34.4 % (30-36); Mean Corpuscular Hemoglobin 30.7 PG (26-34); Mean Corpuscular Volume 89.2 fL (80-100); Platelet Count 252 X10^3/uL (150-400)
[2024-11-02 10:20] LABS: Alanine Aminotransferase 20 IU/L (<35); Albumin 4.0 g/dL (3.5-5.0); Albumin Globulin Ratio 1.8 (1.0-2.8); Alkaline Phosphatase 66 U/L (38-126); Blood Urea Nitrogen 18 mg/dL (7-17); Calcium 9.6 mg/dL (8.4-10.2); Carbon Dioxide 29 mmol/L (22-32); Chloride 105 mmol/L (98-107); Cholesterol 231 mg/dL (140-199); Estimated Glomerular Filt Rate 60 mL/min (>60); Globulin 2.2 g/dL (1.7-4.1); Glucose 81 mg/dL (70-99); HDL Cholesterol 100 mg/dL (40-60); HEMOLYSIS < 15 (0-50); Potassium 4.5 mmol/L (3.4-5.1); Sodium 138 mmol/L (137-145); Total Protein 6.2 g/dL (6.3-8.2); Triglycerides 69 mg/dL (35-150)
== END ==
PROVIDERS: PCP Family Medicine; Referring Provider Family Medicine; Visit Provider Family Medicine
DX: Z00.00 Encounter for general adult medical examination without abnormal findings (principal); E78.00 Pure hypercholesterolemia, unspecified; F33.2 Major depressive disorder, recurrent severe without psychotic features
CPT/HCPCS: 36415; 80053; 80061; 85025

== ENCOUNTER → 2024-11-15 11:36 | Outpatient (CLI) | payer MEDICARE, SELFPAY ==
[2024-09-06 10:55] VITALS: BMI 17.2
--- NOTE | 2024-11-15 11:38 | DI.MG.S_ITS ---
MM screening mammo BI: 11/15/2024. BI-RADS: 1 CLINICAL: 74-year old female for bilateral screening mammogram. Tyrer-Cuzick lifetime risk of 2.2%. No personal or first-degree family history of breast cancer. PRIOR EXAMS 07/05/2023, 06/10/2023. MAMMOGRAPHY TECHNIQUE: 2D and 3D (tomosynthesis) digital mammographic views obtained, with additional images as needed for full coverage. Current study was also evaluated with a Computer Aided Detection (CAD) system. DENSITY C. The breasts are heterogeneously dense, which may obscure small masses. MAMMOGRAPHY FINDINGS Bilateral: No suspicious mass, asymmetry, microcalcification, or other abnormality seen. IMPRESSION: * No evidence of malignancy. RECOMMENDATIONS Bilateral * Annual screening mammography. OVERALL ASSESSMENT CATEGORY BI-RADS-1: Negative. The [place] [employer] recommends annual screening mammography beginning at age 40 for women with average risk of breast cancer. ELECTRONICALLY SIGNED: Whitley Lujan M.D. on 11/15/2024 at 12:31:14 PM PT Interpreting Station ID: [id number]
== END ==
PROVIDERS: PCP Family Medicine; Referring Provider Family Medicine; Visit Provider Family Medicine
DX: Z12.31 Encounter for screening mammogram for malignant neoplasm of breast (principal); R92.333 Mammographic heterogeneous density, bilateral breasts
CPT/HCPCS: 77063; 77067